=== PATIENT | male | born 1940 | race Caucasian/White ===

== ENCOUNTER 2017-02-05 15:46 | Observation (INO) ==
[2017-02-05] MEDS ORDERED: *HR* Metoprolol 5 MG/5 ML VIAL IVP ONE (15:59)
--- NOTE | 2017-02-05 16:11 | Emergency Department Note ---
Disposition Clinical Impression: Atrial flutter Qualifiers: Atrial flutter type: atypical Qualified Code(s): I48.4 - Atypical atrial flutter Disposition: Admitted As Inpatient Condition: Good Arrhythmia/Palpitations HPI - General Chief Complaint: ED Arrhythmia/Palpitations Stated Complaint: A flutter Time Seen by Provider: 02/05/17 15:51 Source: patient Mode of arrival: wheelchair Limitations: no limitations Nursing Notes Reviewed: Yes Vital Signs Reviewed: Yes - History of Present Illness HPI Narrative: 76-year-old male history of coronary artery disease, status post CABG roughly 5 years ago, hypertension, hyperlipidemia who presents to the ER due to atrial flutter. Patient states he was seen by his store hand this morning and found to be in a flutter. He states this is a new diagnosis for him. He does report that he has felt more short of breath lately. No chest pain at home. No recent changes in his medications. Denies a history of DVT or PE. No other complaints. Pt Subjective Complaint: palpitations Onset (ago): unknown Duration: intermittent Severity: moderate Context: occurred during rest Associated symptoms: Reports: shortness of breath. Denies: chest pain, syncope , nausea, vomiting - Related Data Allergies Allergy/AdvReac Type Severity Reaction Status Date / Time No Known Allergies Allergy Verified 12/21/15 09:43 All systems ED: reviewed and negative except as stated. Constitutional: Denies: fever Cardiovascular: Reports: palpitations. Denies: chest pain Respiratory: Reports: dyspnea. Denies: wheezes Gastrointestinal: Denies: abdominal pain, nausea, vomiting Past Medical History - Past Medical History Attestation: Yes The following information was validated with the patient. Source: patient Medical history: Reports: coronary artery disease, GERD, hyperlipidemia, hypertension Surgical history: Reports: coronary bypass (CABG) Psychiatric history: Reports: no psych history - Social History Smoking Status: Current every day smoker Smokeless Tobacco Status: No Alcohol use: Reports: none Drug use: Reports: none Physical Exam - General Limitations: no limitations General appearance: alert, in no apparent distress - Head Head exam: atraumatic, normocephalic, normal inspection - Eye Eye exam: Present: normal appearance, EOMI - ENT ENT exam: normal exam - Neck Neck exam: Present: normal inspection, full ROM - Chest Chest inspection: Present: normal inspection, symmetric chest wall rise - Respiratory Respiratory exam: Present: normal lung sounds bilaterally - Cardiovascular Cardiovascular exam: Present: tachycardia, irregular rhythm, normal heart sounds - Abdominal Exam Abdominal exam: Present: soft, Non-Tender. Absent: tenderness, distention, rigidity - Extremities Exam Extremities exam: Present: normal inspection, full ROM - Expanded Upper Extremity Exam Shoulder exam: Present: normal inspection, full ROM Arm exam: Present: normal inspection, full ROM Elbow exam: Present: normal inspection, full ROM Forearm/Wrist exam: Present: normal inspection, full ROM Hand exam: Present: normal inspection, full ROM Vascular exam: Normal: radial pulse - Expanded Lower Extremity Exam Hip/Pelvis exam: Present: normal inspection, full ROM Upper leg exam: Present: normal inspection, full ROM Knee exam: Present: normal inspection, full ROM Lower leg exam: Present: normal inspection, full ROM Ankle exam: Present: normal inspection, full ROM Foot/toe exam: Present: normal inspection, full ROM Neurovascular/Tendon exam: Absent: motor deficit, sensory deficit - Neurological Exam Neurological exam: Present: alert, other (GCS 15. Nonfocal neurologic exam. Moves all extremities equally.) - Psychiatric Psychiatric exam: Present: normal affect, normal mood - Skin Skin exam: Present: warm, dry, intact, normal color Course Course Narrative: Patient seen and examined. His heart rate is currently in the 110s. Blood pressure is stable. We will obtain a repeat EKG as well as chest x-ray and labs including troponin and TSH. Patient takes metoprolol at homes we will try a dose of IV metoprolol here prior to initiating boluses or drips. - Reevaluation(s) Reevaluation #1: Patient's heart rate is in the 70s after 5 mg of Lopressor. Discussed admission to the hospital and the patient is in agreement. Vital Signs Temperature 98.6 F 02/05/17 15:49 Pulse Rate 105 02/05/17 15:49 Respiratory Rate 18 02/05/17 15:49 Blood Pressure 142/91 02/05/17 15:49 O2 Sat by Pulse Oximetry 97 02/05/17 15:49 Temperature 97.6 F 02/05/17 20:14 Pulse Rate 86 02/05/17 20:14 Respiratory Rate 18 02/05/17 20:14 Blood Pressure 150/88 02/05/17 20:14 O2 Sat by Pulse Oximetry 95 02/05/17 20:14 Oxygen Delivery Oxygen Delivery Room Air Arrhythmia/Palpitations - MDM Narrative Medical decision making narrative: 76-year-old male presents to the ER due to palpitations and shortness of breath from his cardiology office found to be in new onset A. fib flutter with RVR. EKG demonstrates a flutter with 2:1, 3:1 and 4:1 conduction. Chest x-ray is unremarkable. Troponin and TSH within normal limits. Patient given 5 mg of Lopressor with rate control at this time. Accepted by the hospitalist service. - Lab Data Lab results reviewed: Yes I reviewed the patient's lab results. Result diagrams: 02/05/17 16:12 02/05/17 16:12 Lab Results 02/05/17 02/05/17 02/05/17 Range/Units 16:12 16:12 16:12 WBC 6.3 (4.3-11.1) K/mcL RBC 5.51 H (4.19-5.50) M/mcL Hgb 16.0 (12.9-16.9) g/dL Hct 49.9 (37.5-50.1) % MCV 90.6 (83.0-100.0) fL MCH 29.0 (28.0-33.3) pg MCHC 32.1 (31.6-35.5) g/dL RDW 14.0 (11.5-14.5) % Plt Count 162 (140-400) K/mcL MPV 10.3 (9.4-12.4) fL Immature Gran % 0.2 (0-4) % Seg Neutrophils % 63.5 % Lymphocytes % 25.0 % Monocytes % 9.2 % Eosinophils % 1.6 % Basophils % 0.5 % Neutrophils # 4.0 (1.6-8.9) K/mcL Lymphocytes # 1.6 (0.6-4.6) K/mcL Monocytes # 0.6 (0.0-1.3) K/mcL Eosinophils # 0.1 (0.0-0.6) K/mcL Basophils # 0.0 (0.0-0.2) K/mcL PT 10.9 (9.4-12.1) Seconds INR 1.0 APTT 29.1 (26.0-36.0) Seconds Sodium 139 (136-145) mEq/L Potassium 3.8 (3.5-4.5) mEq/L Chloride 103 (98-109) mEq/L Carbon Dioxide 30 H (19-29) mEq/L BUN 13 (8-26) mg/dL Creatinine 0.95 (0.72-1.25) mg/dL Est GFR ( Amer) > 60 (> 60) Est GFR (Non-Af Amer) > 60 (> 60) BUN/Creatinine Ratio 14 (6-26) Glucose 85 (70-99) mg/dL Calculated Osmolality 287 (280-300) Calcium 9.2 (8.6-10.8) mg/dL Troponin I (0-0.03) ng/mL TSH 0.782 (0.350-4.840) mcIU/mL 02/05/17 Range/Units 16:12 WBC (4.3-11.1) K/mcL RBC (4.19-5.50) M/mcL Hgb (12.9-16.9) g/dL Hct (37.5-50.1) % MCV (83.0-100.0) fL MCH (28.0-33.3) pg MCHC (31.6-35.5) g/dL RDW (11.5-14.5) % Plt Count (140-400) K/mcL MPV (9.4-12.4) fL Immature Gran % (0-4) % Seg Neutrophils % % Lymphocytes % % Monocytes % % Eosinophils % % Basophils % % Neutrophils # (1.6-8.9) K/mcL Lymphocytes # (0.6-4.6) K/mcL Monocytes # (0.0-1.3) K/mcL Eosinophils # (0.0-0.6) K/mcL Basophils # (0.0-0.2) K/mcL PT (9.4-12.1) Seconds INR APTT (26.0-36.0) Seconds Sodium (136-145) mEq/L Potassium (3.5-4.5) mEq/L Chloride (98-109) mEq/L Carbon Dioxide (19-29) mEq/L BUN (8-26) mg/dL Creatinine (0.72-1.25) mg/dL Est GFR ( Amer) (> 60) Est GFR (Non-Af Amer) (> 60) BUN/Creatinine Ratio (6-26) Glucose (70-99) mg/dL Calculated Osmolality (280-300) Calcium (8.6-10.8) mg/dL Troponin I 0.01 (0-0.03) ng/mL TSH (0.350-4.840) mcIU/mL - Radiology Data Radiology results reviewed: Yes I reviewed the patient's radiology results. Chest X-Ray 02/05/17 15:59 IMPRESSION: No acute cardiopulmonary disease. D/ / Dallin Diego MD / Dallin Diego MD Interpreting Provider: Dallin Diego MD - EKG Data EKG attestation: Yes I reviewed and interpreted this EKG. EKG results narrative: EKG demonstrates atrial flutter with rapid ventricular response with a rate of 110. Patient appears to be going in and out of 2-123-124-1 conduction. Normal axis. Normal intervals. T-wave inversions in the inferior leads. No ST elevations or depressions. Changes from previous EKG included atrial flutter. S.B.A.Anant - Neeraj.B.AYanci Situation: Demographics, MOA Background: Presenting Complaint, Relevant PMH, Meds, & Allergies Assessment: Vital Signs, Course and respsone to treatment, Exam Concerns, Patient/Family Expectation, Pertinant Lab Results, Outstanding Labs Recommendation: Barrier(s) to disposition, Recommendation based on pending studies, treatments, or consults S.B.A.RCan Report Given to: Radha Castorena [facility] Time: 18:50 Attestation Statement - Attestation Attestation: I examined this patient and my medical decision-making was reviewed with the Resident Physician, Dr. Salas. I agree with the documented findings, disposition and treatment plan as described except to the extent set forth below. Patient is a 68-year-old white male with a history of coronary artery disease hypertension hyperlipidemia status post remote CABG who presents to the emergency department sent by his store hand from their office this morning with new onset atrial flutter. Patient states he has noticed some occasional intermittent episodes of shortness of breath associated with some palpitations but they have been intermittent and he has noticed over the past 6 weeks. Patient had a routine follow-up today with his store hand and on evaluation noticed he was in a rapid irregular heart rate and sent him here for further evaluation. Patient sees Dr. Alan. Patient has no complaints of chest pain pressure or heaviness, no lightheadedness or syncope, no abdominal pain or back pain and currently at rest he is not feeling any shortness of breath. Agree patient's physical exam findings as documented. EKG shows atrial flutter with rapid ventricular response with no acute ST or T- wave changes. Patient had lab evaluation was continued on a cardiac cath lab radiology technologist pulse ox IV saline well was established and patient's blood pressure has remained stable throughout. Patient received a dose of IV Lopressor here which controlled his rate remains in A. fib/atrial flutter. Labs including troponin were unremarkable and chest x-ray is normal. Patient will be admitted for further evaluation of this new onset atrial flutter. Case was discussed with hospitalist who accepted patient for admission.
[2017-02-05 16:20] LABS: Basophils % 0.5 %; Eosinophils # 0.1 K/mcL (0.0-0.6); Eosinophils % 1.6 %; Hematocrit 49.9 % (37.5-50.1); Immature Granulocytes % 0.2 % (0-4); Lymphocytes # 1.6 K/mcL (0.6-4.6); Mean Corpuscular HGB Conc 32.1 g/dL (31.6-35.5); Mean Corpuscular Volume 90.6 fL (83.0-100.0); Mean Platelet Volume 10.3 fL (9.4-12.4); Monocytes # 0.6 K/mcL (0.0-1.3); Monocytes % 9.2 %; Platelet Count 162 K/mcL (140-400); Red Blood Count 5.51 M/mcL (4.19-5.50); Segmented Neutrophils % 63.5 %
[2017-02-05 16:27] LABS: Prothrombin Time 10.9 Seconds (9.4-12.1)
[2017-02-05 16:30] LABS: Activated Partial Thrombo Time 29.1 Seconds (26.0-36.0)
[2017-02-05 16:32] LABS: BUN/Creatinine Ratio 14 (6-26); Blood Urea Nitrogen 13 mg/dL (8-26); Calcium 9.2 mg/dL (8.6-10.8); Carbon Dioxide 30 mEq/L (19-29); Chloride 103 mEq/L (98-109); Glucose 85 mg/dL (70-99); Osmolality,Calculated 287 (280-300); Potassium 3.8 mEq/L (3.5-4.5); Sodium 139 mEq/L (136-145); eGFR For African Americans > 60 (> 60); eGFR For Non-African Americans > 60 (> 60)
[2017-02-05 16:58] LABS: Thyroid Stimulating Hormone 0.782 mcIU/mL (0.350-4.840)
[2017-02-05] MEDS ORDERED: Naloxone 0.4 MG/ML INJ IVP PRN (20:21)
[2017-02-05] MEDS ORDERED: Ondansetron 4 MG/2 ML VIAL IVP PRN (20:21)
[2017-02-05] MEDS ORDERED: Acetaminophen 325 MG TABLET PO PRN (20:21)
[2017-02-05] MEDS ORDERED: *HR* Morphine 2 MG/ML SYRINGE IVP PRN (20:21)
[2017-02-05] MEDS: Ranolazine 500 MG TAB.ER.12H PO SCH (21:13)
[2017-02-05] MEDS: Aspirin Enteric Coated 81 MG Tablet PO SCH (21:13)
--- NOTE | 2017-02-05 21:56 | Internal Med History&Physical ---
Date of Encounter: 02/05/17 Time of Encounter: 21:30 Assessment and Plan (1) Atrial flutter Current visit: Yes Status: Acute Atrial flutter with RVR - now rate controlled, likely paroxysmal One dose IV Lopressor 5 mg given in ED Continue PO Lopressor, Aspirin EKG - atrial flutter Echocardiogram - LVEF 55%, mild diastolic dysfunction Troponin - negative, cycle troponin BN peptide - 148 Cardiology consult Cardiac telemetry, continue to monitor closely Qualifiers: Atrial flutter type: unspecified Qualified Code(s): I48.92 - Unspecified atrial flutter (2) CAD (coronary artery disease) Current visit: Yes Status: Chronic Coronary artery disease status post CABG - stable Continue aspirin, Crestor, Lopressor, Ranexa Troponin - negative Qualifiers: Coronary Disease-Associated Artery/Lesion type: [place] artery [place] vs. transplanted heart: [place] heart Associated angina: without angina Qualified Code(s): I25.10 - Atherosclerotic heart disease of [place] coronary artery without angina pectoris (3) Hypertension Current visit: Yes Status: Chronic Essential hypertension, controlled, monitor Continue home dose of losartan, Imdur, Lopressor Qualifiers: Hypertension type: essential hypertension Qualified Code(s): I10 - Essential (primary) hypertension (4) Hyperlipidemia Current visit: Yes Status: Chronic Continue Crestor Qualifiers: Hyperlipidemia type: unspecified Qualified Code(s): E78.5 - Hyperlipidemia , unspecified (5) DVT prophylaxis Current visit: Yes Status: Acute Continue heparin subcutaneous Internal Medicine - H&P: HPI Chief complaint: Atrial flutter Admitted From: Emergency Dept History of present illness: Mr. Olivarez is a 76 year old male with past medical history of GERD, coronary artery disease status post CABG, hyperlipidemia and hypertension. Patient presents to the ED from his physician's office for atrial flutter. Examined in the room. Patient is awake and alert. Not in any distress. Able to provide all history. No family members at bedside. Patient states he went to his physician's office today for routine checkup. He was found to have atrial flutter with rapid ventricular response. He was then sent to the ED. This is apparently a new diagnosis for him. Patient denies chest pain, denies shortness of breath, denies palpitations. He states he has no symptoms. Patient states he wants to be discharged as soon as possible. Patient has no other acute complaints at this time. Initial workup in the ED revealed atrial flutter with RVR. Chest x-ray is negative. Troponin is negative. 5 mg IV Lopressor was given in the ED. Heart rate is now controlled. No other significant findings. Vision had a recent echocardiogram which shows LVEF 55% with normal LV size and systolic function mild diastolic dysfunction. Patient is being admitted for atrial flutter. CODE STATUS full code. Past Med Surg Social Fam HX - Past Medical History Medical history: coronary artery disease, GERD, hyperlipidemia, hypertension Psychiatric history: no psych history - Past Surgical History Surgical History: coronary bypass (CABG) - Social History Smoking Status: Current every day smoker Packs per day: <1 Smokeless Tobacco Status: No Alcohol use: none Drug use: none - Family History Mother History Unknown: Yes Internal Medicine - H&P: Meds Aspirin Enteric Coated [Aspirin EC] 81 mg PO DAILY 02/05/17 [History] Cholecalciferol (D-3) [Vitamin D] 2,000 unit PO DAILY 02/05/17 [History] Clopidogrel [Plavix] 75 mg PO DAILY 02/05/17 [History] Isosorbide MONOnitrate (24 HR) [Imdur] 60 mg PO DAILY 02/05/17 [History] Losartan [Cozaar] 25 mg PO DAILY 02/05/17 [History] Magnesium Oxide [Mag-Ox] 400 mg PO DAILY 02/05/17 [History] Metoprolol [Lopressor] 25 mg PO BID 02/05/17 [History] Omeprazole [PriLOSEC] 40 mg PO DAILY 02/05/17 [History] Ranitidine HCl [Zantac] 150 mg PO BID 02/05/17 [History] Ranolazine [Ranexa] 500 mg PO BID 02/05/17 [History] Rosuvastatin [Crestor] 40 mg PO HS 02/05/17 [History] 3 Allergy/AdvReac Type Severity Reaction Status Date / Time No Known Allergies Allergy Verified 12/21/15 09:43 All Systems PM: A 10-system review of systems was performed and is negative for pertinent findings except as documented above in the HPI. - Constitutional Constitutional: no fatigue, no fever(s), no weakness - EENT Eyes: no blurry vision - Cardiovascular Cardiovascular ROS IM: no chest pain, no diaphoresis, no dyspnea, no dyspnea on exertion, no edema, no lightheadedness, no orthopnea, no syncope - Respiratory Respiratory: no cough, no dyspnea, no hemoptysis, no dyspnea on exertion, no wheezing - Gastrointestinal Gastrointestinal: no abdominal pain, no belching, no bloating, no cramping, no diarrhea, no hematemesis, no hematochezia, no nausea, no vomiting - Genitourinary Genitourinary ROS male: no dysuria - Neurological Neurological ROS: no abnormal gait, no confusion, no dizziness, no loss of vision, no numbness, no tingling - Constitutional Vitals: Temp Pulse Resp BP Pulse Ox 97.6 F 86 18 150/88 95 02/05/17 20:14 02/05/17 20:14 02/05/17 20:14 02/05/17 20:14 02/05/17 20:14 General appearance: Present: A&O X 3, pleasant, no acute distress, answers questions appropriately - Head Head exam: Present: atraumatic - Eye Eye exam: Present: EOMI - ENT ENT exam: Present: mucous membranes moist - Respiratory Respiratory exam: Present: CTAB. Absent: rales, rhonchi, wheezes, tachypnea - Cardiovascular Cardiovascular exam: Present: RRR, +S1, +S2 - GI/Abdominal GI/Abdominal exam: Present: soft. Absent: distended, firm, guarding, tenderness - Extremities Exam Extremities exam: Present: radial pulses palpable and symmetrical. Absent: calf tenderness, cyanotic, pedal edema - Neurological Exam Neurological exam: Present: alert, oriented X3, no focal deficits. Absent: facial droop, speech deficit Internal Med - H&P Results - Labs CBC & Chem 7: 02/05/17 16:12 02/05/17 16:12 Labs: Cardiac Enzymes 02/05/17 Range/Units 20:44 Troponin I 0.01 (0-0.03) ng/mL
[2017-02-05] MEDS: *HR* Heparin 5,000 UNIT/ML VIAL SQ SCH (23:25)
[2017-02-05 23:47] LABS: Bilirubin,Urine Negative (Negative); Blood,Urine Negative (Negative); Clarity,Urine Clear (Clear); Color,Urine Yellow (Yellow); Glucose,Urine (UA) Normal (Normal); Ketones,Urine Negative (Negative); Leukocyte Esterase,Urine Negative (Negative); Nitrite,Urine Negative (Negative); Protein,Urine Negative (Neg-Trace); Specific Gravity,Urine 1.019 (1.010-1.025); Urobilinogen,Urine Normal (Normal)
[2017-02-06 04:24] LABS: BUN/Creatinine Ratio 18 (6-26); Blood Urea Nitrogen 15 mg/dL (8-26); Carbon Dioxide 26 mEq/L (19-29); Chloride 106 mEq/L (98-109); Chol/HDL Ratio 3.8 (0-4.9); Cholesterol 134 mg/dL (< 200); Glucose 103 mg/dL (70-99); HDL Cholesterol 35 mg/dL (40-59); LDL Cholesterol,Calculated 51 mg/dL (0-99); Magnesium 1.9 mg/dL (1.6-2.6); Osmolality,Calculated 289 (280-300); Potassium 4.2 mEq/L (3.5-4.5); Sodium 139 mEq/L (136-145); Triglycerides 240 mg/dL (< 150); eGFR For African Americans > 60 (> 60); eGFR For Non-African Americans > 60 (> 60)
[2017-02-06] MEDS ORDERED: Famotidine 20 MG/2 ML VIAL IVP SCH (06:00)
[2017-02-06] MEDS: Ipratropium/Albuterol Neb 3 ML IH SCH ×6 (07:37→23:18)
--- NOTE | 2017-02-06 08:20 | Internal Med Progress Note ---
<Shyanne Guerrero - Last Filed: 02/06/17 16:02> Date of Encounter: 02/06/17 Time of Encounter: 08:20 - Assessment and plan (1) Atrial flutter Current Visit: Yes Status: Acute Assessment and plan: Atrial flutter with RVR x 1 mo, Hx of CAD w/ Last PCI 2014, PTCA prox-mid RCA) Cardio on consult, appreciate res Lopressor 50 mg BID Xarelto 20 mg PO daily Qualifiers: Atrial flutter type: typical Qualified Code(s): I48.3 - Typical atrial flutter (2) CAD (coronary artery disease) Current Visit: Yes Status: Chronic Assessment and plan: ECG w/o ischemic changes. Troponin negative x3 Continue meds -- ASA, nitrates, ranolazine, statin, B-carlos Qualifiers: Coronary Disease-Associated Artery/Lesion type: [place] artery [place] vs. transplanted heart: [place] heart Associated angina: without angina Qualified Code(s): I25.10 - Atherosclerotic heart disease of [place] coronary artery without angina pectoris (3) DVT prophylaxis Current Visit: Yes Status: Acute Assessment and plan: Covered w/ Xarelto (4) Hypertension Current Visit: Yes Status: Chronic Assessment and plan: BP within goal, 101/64 Continue medical management Qualifiers: Hypertension type: essential hypertension Qualified Code(s): I10 - Essential (primary) hypertension (5) Hyperlipidemia Current Visit: Yes Status: Chronic Assessment and plan: Per cardiology, recommend statin Qualifiers: Hyperlipidemia type: unspecified Qualified Code(s): E78.5 - Hyperlipidemia , unspecified - Subjective Interval history: Pt lying comfortably. States he is an active smoker. Denies chest pain, SOB, abdominal currently. - Constitutional Vitals: Temp Pulse Resp BP Pulse Ox 97.6 F 84 15 107/72 97 02/06/17 07:52 02/06/17 07:52 02/06/17 07:52 02/06/17 07:52 02/06/17 07:52 General appearance: Present: cooperative, A&O X 3, no acute distress, answers questions appropriately - Head Head exam: Present: atraumatic, normocephalic - Respiratory Respiratory exam: Present: CTAB. Absent: accessory muscle use, rales, rhonchi, wheezes - Cardiovascular Cardiovascular exam: Present: irregular rhythm, +S1, +S2. Absent: tachycardia - GI/Abdominal GI/Abdominal exam: Present: normal bowel sounds, soft, no peritoneal signs. Absent: distended, tenderness - Extremities Exam Extremities exam: Present: warm. Absent: calf tenderness, cyanotic, pedal edema Internal Medicine: Result - Labs CBC & Chem 7: 02/06/17 08:43 02/06/17 02:50 Labs: BMP 02/06/17 02:50 Sodium 139 Potassium 4.2 Chloride 106 Carbon Dioxide 26 BUN 15 Creatinine 0.85 Glucose 103 H Calcium 9.0 Cardiac Enzymes 02/05/17 02/06/17 Range/Units 20:44 02:50 Troponin I 0.01 0.02 (0-0.03) ng/mL Urine 02/05/17 Range/Units 23:30 Urine Color Yellow (Yellow) Urine Clarity Clear (Clear) Urine pH 6.0 (5.0-8.0) pH Units Ur Specific [place] 1.019 (1.010-1.025) Urine Protein Negative (Neg-Trace) mg/dL Urine Glucose (UA) Normal (Normal) mg/dL - ABG Interpretation ABG results: PT/INR, D-dimer PT 10.9 Seconds (9.4-12.1) 02/05/17 16:12 - Impressions Chest X-Ray 02/05/17 15:59 IMPRESSION: No acute cardiopulmonary disease. D/ / Dallin Diego MD / Dallin Diego MD Interpreting Provider: Dallin Diego MD Consult Discharge Plan - Plan Referrals: Eleni Pope MD [Primary Care Provider] - 02/17/17 1:45 pm <Colton Morrison P - Last Filed: 02/06/17 17:47> Date of Encounter: 02/06/17 - Constitutional Vitals: Temp Pulse Resp BP Pulse Ox 97.6 F 99 16 90/47 93 02/06/17 16:58 02/06/17 16:58 02/06/17 16:58 02/06/17 16:58 02/06/17 16:58 Internal Medicine: Result - Labs CBC & Chem 7: 02/06/17 08:43 02/06/17 02:50 Labs: Short CBC 02/06/17 Range/Units 08:43 WBC 4.9 (4.3-11.1) K/mcL Hgb 15.2 (12.9-16.9) g/dL Hct 48.9 (37.5-50.1) % Plt Count 150 (140-400) K/mcL Neutrophils # 2.8 (1.6-8.9) K/mcL BMP 02/06/17 02:50 Sodium 139 Potassium 4.2 Chloride 106 Carbon Dioxide 26 BUN 15 Creatinine 0.85 Glucose 103 H Calcium 9.0 Cardiac Enzymes 02/05/17 02/06/17 02/06/17 Range/Units 20:44 02:50 08:43 Troponin I 0.01 0.02 0.01 (0-0.03) ng/mL Urine 02/05/17 Range/Units 23:30 Urine Color Yellow (Yellow) Urine Clarity Clear (Clear) Urine pH 6.0 (5.0-8.0) pH Units Ur Specific [place] 1.019 (1.010-1.025) Urine Protein Negative (Neg-Trace) mg/dL Urine Glucose (UA) Normal (Normal) mg/dL - ABG Interpretation ABG results: PT/INR, D-dimer PT 10.9 Seconds (9.4-12.1) 02/05/17 16:12 - Attending Attestation I examined this patient and my medical decision-making was reviewed with the Resident Physician. I agree with the documented findings, disposition and treatment plan as described except to the extent set forth below.
[2017-02-06] MEDS: Isosorbide MONOnitrate (24 HR) 60 MG TAB.ER.24H PO SCH (08:55)
[2017-02-06] MEDS: Ranolazine 500 MG TAB.ER.12H PO SCH ×2 (08:55→21:45)
[2017-02-06] MEDS: Magnesium Oxide 400 MG TABLET PO SCH (08:56)
[2017-02-06] MEDS: Aspirin Enteric Coated 81 MG Tablet PO SCH (08:56)
[2017-02-06] MEDS: Cholecalciferol (D-3) 1,000 UNIT TABLET PO SCH (08:56)
[2017-02-06] MEDS: *HR* Heparin 5,000 UNIT/ML VIAL SQ SCH (08:57)
[2017-02-06 09:34] LABS: Basophils % 0.6 %; Eosinophils # 0.2 K/mcL (0.0-0.6); Hematocrit 48.9 % (37.5-50.1); Hemoglobin 15.2 g/dL (12.9-16.9); Immature Granulocytes % 0.2 % (0-4); Lymphocytes # 1.5 K/mcL (0.6-4.6); Lymphocytes % 30.5 %; Mean Corpuscular HGB Conc 31.1 g/dL (31.6-35.5); Mean Corpuscular Volume 93.1 fL (83.0-100.0); Mean Platelet Volume 10.9 fL (9.4-12.4); Monocytes # 0.5 K/mcL (0.0-1.3); Monocytes % 9.8 %; Neutrophils # 2.8 K/mcL (1.6-8.9); Platelet Count 150 K/mcL (140-400); Red Blood Count 5.25 M/mcL (4.19-5.50); Red Cell Distribution Width 14.3 % (11.5-14.5); Segmented Neutrophils % 55.9 %
--- NOTE | 2017-02-06 09:52 | Cardiology Consult Note ---
Date of Encounter: 02/06/17 Time of Encounter: 08:45 Assessment and Plan (1) Atrial flutter Current Visit: Yes Status: Acute Newly diagnosed atrial flutter with RVR; reports symptoms for 1 month. Will increase lopressor to 50 mg BID to improve rate control. ARB stopped to prevent hypotension. 12 hour tele: avg HR=90 aflutter. TSH normal, no significant electrolyte abnormality. Recent TTE 08/2016: EF 55%, mild MR CHA2Ds Vasc=4 (age, CAD, HTN). Recommend full AC, discussed coumadin vs. NOAC; if affordable, he prefers NOAC. Discussed with Dr. Hiram Rodriguez, will willis check Xarelto 20 mg daily. Anticipate will stop plavix to avoid triple therapy ( last PCI 2014, PTCA prox-mid RCA). Recommend rate control strategy and full AC for 1 month, follow-up with Dr. Hiram Rodriguez in the outpatient setting for evaluation for possible ablation. Qualifiers: Atrial flutter type: typical Qualified Code(s): I48.3 - Typical atrial flutter (2) CAD (coronary artery disease) Current Visit: Yes Status: Chronic Hx of CAD s/p CABG; most recent [facility] 2014 s/p PTCA of proximal and mid RCA. Denies subsequent PCI at outside hospital. Stable symptoms, denies chest pain or discomfort. No ischemic ECG changes noted. Troponin negative x3. Continue asa, nitrates, ranexa, betablocker, and statin. Anticipate discontinuation of plavix if start full AC to prevent triple therapy. Qualifiers: Coronary Disease-Associated Artery/Lesion type: [place] artery [place] vs. transplanted heart: [place] heart Associated angina: without angina Qualified Code(s): I25.10 - Atherosclerotic heart disease of [place] coronary artery without angina pectoris Discussion w patient/family: The assessment and plan as outlined above was discussed with the patient and/or family members who expressed understanding and agreement. All questions were answered. Thank you for involving us in the care of your patient. Please call with any questions. The patient will be discussed and reviewed with Dr. Hiram Rodriguez; changes to be made accordingly. History of Present Illness Consult date: 02/06/17 Requesting physician: Tank Todd Consult reason: atrial flutter Chief complaint: Palpitations, fatigue History of present illness: Mr. Minor is a 76 year old male with PMHx significant for CAD s/p CABG, GERD, HLD, HTN, and severe COPD who presented to the ED after being sent by Cardiology office for new onset atrial flutter with RVR, HR 137 bpm. Patient reports fatigue, palpitations, and shortness of breath for the past month. Palpitations worsen with exertion/stress and improve with rest, he notes palpitations also frequently occur at rest. Upon arrival to ED, HR was improved in the low 100s, he was given IV lopressor which improved rate and was then admitted for observation. Prior CV testing: TTE 08/2016: EF 55%, mild LVDD, mild MR LHC 10/26/14: severe 3v CAD, successful PTCA or proximal and mid RCA; s/p 1 of 3 patent bypass grafts--GONGORA to mLAD occluded, SVG to RCA is occluded, SVG to OM2 patent. Past Med Surg Social Fam HX - Past Medical History Attestation: Yes The following information was validated with the patient. Source: patient, old records reviewed Medical history: COPD, coronary artery disease, GERD, hyperlipidemia, hypertension Psychiatric history: no psych history - Past Surgical History Surgical History: coronary bypass (CABG) - Social History Smoking Status: Current every day smoker Packs per day: <1 Smokeless Tobacco Status: No Alcohol use: none Drug use: none - Family History Mother History Unknown: Yes Medications and Allergies Aspirin Enteric Coated [Aspirin EC] 81 mg PO DAILY 02/05/17 [History] Cholecalciferol (D-3) [Vitamin D] 2,000 unit PO DAILY 02/05/17 [History] Clopidogrel [Plavix] 75 mg PO DAILY 02/05/17 [History] Isosorbide MONOnitrate (24 HR) [Imdur] 60 mg PO DAILY 02/05/17 [History] Losartan [Cozaar] 25 mg PO DAILY 02/05/17 [History] Magnesium Oxide [Mag-Ox] 400 mg PO DAILY 02/05/17 [History] Metoprolol [Lopressor] 25 mg PO BID 02/05/17 [History] Omeprazole [PriLOSEC] 40 mg PO DAILY 02/05/17 [History] Ranitidine HCl [Zantac] 150 mg PO BID 02/05/17 [History] Ranolazine [Ranexa] 500 mg PO BID 02/05/17 [History] Rosuvastatin [Crestor] 40 mg PO HS 02/05/17 [History] 3 Allergy/AdvReac Type Severity Reaction Status Date / Time No Known Allergies Allergy Verified 12/21/15 09:43 All Systems Review: A 10-system review of systems was performed and is negative for pertinent findings except as documented above in the HPI. - Cardiovascular Cardiovascular: as per HPI Physical Examination Vital Signs, Last 4 Hours Temp Pulse Resp BP Pulse Ox 02/06/17 07:52 97.6 F 84 15 107/72 97 General: Conversant, No Apparent Distress HEENT: Atraumatic, Normocephaly, Mucus Membranes Moist Cardiac: Other (irregularity irregular) Lungs: Normal Breath Sounds Neuro: Alert and responsive Abdomen: Soft Skin: No rashes noted on visualized skin Musculoskeletal: No Chest Wall Tenderness Extremities: No Edema, Normal Pulses Results 02/06/17 08:43 02/06/17 02:50 Lab Results 02/05/17 02/05/17 02/06/17 20:44 20:44 02:50 WBC Hgb Hct Plt Count Sodium Potassium Chloride Carbon Dioxide BUN Creatinine Glucose Calcium Magnesium Troponin I 0.01 0.02 B-Natriuretic Peptide 148 H 02/06/17 02/06/17 02/06/17 02:50 08:43 08:43 WBC 4.9 Hgb 15.2 Hct 48.9 Plt Count 150 Sodium 139 Potassium 4.2 Chloride 106 Carbon Dioxide 26 BUN 15 Creatinine 0.85 Glucose 103 H Calcium 9.0 Magnesium 1.9 Troponin I 0.01 B-Natriuretic Peptide Active Medications Acetaminophen (Tylenol) 650 mg PO Q6HR PRN PRN Reason: Mild Pain (1-3) Stop: 08/07/17 20:22 Albuterol/Ipratropium (Duoneb) 3 ml IH [id number] [facility] Stop: 08/08/17 06:01 Last Admin: 02/06/17 07:44 Dose: 3 ml Aspirin (Aspirin Ec) 81 mg PO DAILY [facility] Stop: 08/07/17 20:31 Last Admin: 02/06/17 08:56 Dose: 81 mg Clopidogrel Bisulfate (Plavix) 75 mg PO HS [facility] Stop: 08/07/17 21:01 Last Admin: 02/05/17 21:13 Dose: 75 mg Famotidine (Pepcid) 20 mg PO 0730,1630 [facility] PRN Reason: Protocol Stop: 08/08/17 16:31 Heparin Sodium (Porcine) (Heparin) 5,000 unit SQ Q8HR [facility] Stop: 08/08/17 00:01 Last Admin: 02/06/17 08:57 Dose: 5,000 unit Isosorbide Mononitrate (Imdur) 60 mg PO DAILY [facility] Stop: 08/08/17 09:01 Last Admin: 02/06/17 08:55 Dose: 60 mg Magnesium Oxide (Mag-Ox) 400 mg PO DAILY [facility] PRN Reason: Protocol Stop: 08/08/17 09:01 Last Admin: 02/06/17 08:56 Dose: 400 mg Metoprolol Tartrate (Lopressor) 50 mg PO BID [facility] Stop: 08/08/17 09:01 Last Admin: 02/06/17 08:56 Dose: 50 mg Morphine Sulfate (Morphine Sulfate) 2 mg IVP Q4HR PRN PRN Reason: Severe Pain (7-10) Stop: 08/07/17 20:22 Naloxone HCl (Narcan) 0.4 mg IVP Q2MIN PRN PRN Reason: Opioid Reversal Stop: 08/07/17 20:22 Omeprazole (Prilosec) 40 mg PO DAILY@0730 [facility] Stop: 08/08/17 07:31 Last Admin: 02/06/17 08:56 Dose: 40 mg Ondansetron HCl (Zofran) 4 mg IVP Q8HR PRN PRN Reason: Nausea And Vomiting Stop: 08/07/17 20:22 Ranolazine (Ranexa) 500 mg PO BID [facility] Stop: 08/07/17 21:01 Last Admin: 02/06/17 08:55 Dose: 500 mg Rosuvastatin Calcium (Crestor) 40 mg PO HS [facility] Stop: 08/07/17 21:01 Last Admin: 02/05/17 21:13 Dose: 40 mg Vitamin D (Vitamin D) 1,000 unit PO DAILY [facility] Stop: 08/08/17 09:01 Last Admin: 02/06/17 08:56 Dose: 1,000 unit - Imaging and Cardiology Echo: report reviewed Cardiac cath: report reviewed Other Results: 12 hour tele: avg HR=90 afib/flutter - EKG Interpretation EKG results cardiology: personally reviewed Consult Discharge Plan - Plan Referrals: Eleni Pope MD [Primary Care Provider] - 02/17/17 1:45 pm
--- NOTE | 2017-02-06 11:24 | Event Note ---
Date of Encounter: 02/06/17 Time of Encounter: 11:15 - Cardiology Event Note Joshua check: Xarelto 20 mg daily $45/month. Discussed with patient, he is agreeable to cost. Additionally, will determine if patient is eligible for cost assistance program in the outpatient setting. Rx sent to [facility] and will be ready today for pick-up. Will stop SQ heparin and plavix 75 mg daily[address]iscuss[address] with Dr. Hiram Rodriguez, will start Xarelto 20 mg daily. Follow-up with Dr. Hiram Rodriguez in 4-6 weeks. Will coordinate appt. Cardiology will sign-off, please call with questions.
[2017-02-06] MEDS: Famotidine 20 MG TABLET PO SCH (16:23)
[2017-02-06] MEDS ORDERED: *HR* Rivaroxaban 10 MG TABLET PO SCH (17:00)
[2017-02-07 04:14] LABS: Basophils % 0.5 %; Eosinophils # 0.2 K/mcL (0.0-0.6); Eosinophils % 3.1 %; Hematocrit 44.8 % (37.5-50.1); Hemoglobin 14.2 g/dL (12.9-16.9); Immature Granulocytes % 0.5 % (0-4); Lymphocytes # 2.1 K/mcL (0.6-4.6); Mean Corpuscular HGB Conc 31.7 g/dL (31.6-35.5); Mean Corpuscular Volume 94.7 fL (83.0-100.0); Monocytes # 0.5 K/mcL (0.0-1.3); Monocytes % 8.2 %; Neutrophils # 3.3 K/mcL (1.6-8.9); Platelet Count 127 K/mcL (140-400); Red Blood Count 4.73 M/mcL (4.19-5.50); Red Cell Distribution Width 14.2 % (11.5-14.5); Segmented Neutrophils % 53.7 %
[2017-02-07 04:32] LABS: BUN/Creatinine Ratio 16 (6-26); Blood Urea Nitrogen 16 mg/dL (8-26); Calcium 8.6 mg/dL (8.6-10.8); Carbon Dioxide 26 mEq/L (19-29); Chloride 105 mEq/L (98-109); Glucose 103 mg/dL (70-99); Osmolality,Calculated 289 (280-300); Potassium 4.2 mEq/L (3.5-4.5); Sodium 139 mEq/L (136-145); eGFR For African Americans > 60 (> 60); eGFR For Non-African Americans > 60 (> 60)
[2017-02-07] MEDS: Ipratropium/Albuterol Neb 3 ML IH SCH ×3 (06:23→10:06)
--- NOTE | 2017-02-07 07:43 | Discharge Summary ---
Addendum entered and electronically signed by Shyanne Guerrero MD 02/07/17 11:38: AM interval history addendum: Denies bleeding gums. No bloody stools. No coughing of blood this AM. Following education on inhalers, said he is "ready" to go home. O2 sat >94% AM. Addendum entered and electronically signed by Shyanne Guerrero MD 02/07/17 11:17: Added discharge diagnosis: COPD Priority: Secondary Status: Chronic Original Note: <Shyanne Guerrero - Last Filed: 02/07/17 11:12> Date of Encounter: 02/07/17 Time of Encounter: 07:39 - Discharge Diagnosis (1) Atrial flutter Priority: Primary Status: Acute Qualifiers: Atrial flutter type: typical Qualified Code(s): I48.3 - Typical atrial flutter (2) CAD (coronary artery disease) Priority: Primary Status: Chronic Qualifiers: Coronary Disease-Associated Artery/Lesion type: [place] artery [place] vs. transplanted heart: [place] heart Associated angina: with unspecified angina Qualified Code(s): I25.119 - Atherosclerotic heart disease of [place] coronary artery with unspecified angina pectoris (3) DVT prophylaxis Priority: Secondary Status: Acute (4) Hypertension Priority: Secondary Status: Chronic Qualifiers: Hypertension type: essential hypertension Qualified Code(s): I10 - Essential (primary) hypertension (5) Hyperlipidemia Priority: Secondary Status: Chronic Qualifiers: Hyperlipidemia type: unspecified Qualified Code(s): E78.5 - Hyperlipidemia , unspecified - Discharge Medications Prescriptions: Albuterol Sulfate [Albuterol Inhaler] 1 puff IH Q6HR PRN #1 inhaler PRN Reason: Bronchospasm Budesonide/Formoterol 160/4.5 [Symbicort 160/4.5] 2 puff IH BIDR #1 hfa.aer.ad Metoprolol [Lopressor] 50 mg PO BID #30 Home Medications: Cholecalciferol (D-3) [Vitamin D] 2,000 unit PO DAILY 02/05/17 [History] Isosorbide MONOnitrate (24 HR) [Imdur] 60 mg PO DAILY 02/05/17 [History] Losartan [Cozaar] 25 mg PO DAILY 02/05/17 [History] Magnesium Oxide [Mag-Ox] 400 mg PO DAILY 02/05/17 [History] Omeprazole [PriLOSEC] 40 mg PO DAILY 02/05/17 [History] Ranitidine HCl [Zantac] 150 mg PO BID 02/05/17 [History] Ranolazine [Ranexa] 500 mg PO BID 02/05/17 [History] Rosuvastatin [Crestor] 40 mg PO HS 02/05/17 [History] Albuterol Sulfate [Albuterol Inhaler] 1 puff IH Q6HR PRN #1 inhaler 02/07/17 [Rx ] Aspirin Enteric Coated [Aspirin EC] 81 mg PO DAILY #30 unit 02/07/17 [Rx] Budesonide/Formoterol 160/4.5 [Symbicort 160/4.5] 2 puff IH BIDR #1 hfa.aer.ad 02/07/17 [Rx] Metoprolol [Lopressor] 50 mg PO BID #30 02/07/17 [Rx] Rivaroxaban [Xarelto] 20 mg PO 1700 #0 tab 02/07/17 [Rx] Allergies/Adverse Reactions: 3 Allergy/AdvReac Type Severity Reaction Status Date / Time No Known Allergies Allergy Verified 12/21/15 09:43 Procedures/tests Complete & Pending: Procedures Performed prior 72 hours Category Date Time Status ECG 12 lead ECG [ECG] AM 0600 Y 02/06/17 06:00 Completed Chest X-Ray 02/05/17 15:59 IMPRESSION: No acute cardiopulmonary disease. D/ / Dallin Diego MD / Dallin Diego MD Interpreting Provider: Dallin Diego MD Date of admission: 02/05/17 18:50 Primary care physician: Eleni Pope Consults: 02/05/17 21:56 Consult to Cardiology [CONS] Routine Comment: Consulting Provider: Cardiology Kimberly Reason for Consult: afib with RVR, CAD Call Completed: No Discharging clinician: Shyanne Guerrero Anticipated date of discharge: 02/07/17 - Patient Status Disposition: Home, Self-Care Condition: Fair Functional capacity at discharge: independent ambulation (as tolerated. Drive home with assistance. Added note: Per nurse, patient refuses and insists on driving himself.) Overall status at discharge: patient is progressing back to baseline - Discharge Instructions Instructions: Atrial Flutter (DC) Follow Up With: Hiram Rodriguez MD [Partnered Physician] - (group controller office will contact patient for an appt.) Eleni Pope MD [Primary Care Provider] - 02/17/17 1:45 pm Additional Instructions: -Please follow up with primary care provider within 1 week -Please follow-up with Dr. Hiram Rodriguez in 4-6 weeks. 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 Premature discontinuation of any oral anticoagulant, including rivaroxaban, increases the risk of thrombotic events. If anticoagulation with rivaroxaban is discontinued for a reason other than pathological bleeding or completion of a course of therapy, please present to your PCP to consider coverage with another anticoagulant. -We discussed that rivaroxaban increases your risk of bleeding. Please proceed to the emergency room in the event of any fall or trauma or unexplained bleeding , such as bleeding gums, bloody stools or coughing up blood. -Proceed to the emergency room with new onset of fever, increased shortness of breath, chest pain or new onset of symptoms - Diet and Activity Activity: increase activity as tolerated, wear oxygen at all times Diet: low fat, low cholesterol Interval History: No acute events overnight. This AM, pt denies chest pain, SOB, abdominal pain, or headache. Update: 11 AM. Patient drove to ER. Should be driven home by acquaintance or via transport back home. Per nurse: Pt refuses either options and elects to drive home instead. Hospital course: Mr. Olivarez is a 76 y male with history of coronary artery disease s/p CABG; most recent [facility] 2014 s/p PTCA of proximal and mid RCA. The patient additionally has a history of hypertension and hyperlipidemia. He presented to the ER with EKG demonstrating atrial flutter with 2:1, 3:1 and 4:1 conduction. The patient was admitted for management of newly diagnosed atrial flutter. On further questioning, patient reported symptoms consistent with atrial flutter with RVR. Transthoracic Echo in August of 2016 demonstrated an EF 55% with mild MR. Chest x-ray was unremarkable. Troponin and TSH within normal limits. Cardiology was placed on consult CHA2Ds Vasc equaled 4 (age, CAD, HTN). A recommendation was made with full anticoagulation, the service discussed coumadin vs. NOAC and he preferred NOAC. The patient was stable while hospitalized. Rate control strategy was commenced with a plan for full AC for 1 month and subsequent follow-up with Dr. Hiram Rodriguez in the outpatient setting for evaluation for possible ablation. - Time Spent with Patient Total time spent providing and/or coordinating discharge services: - Constitutional Vitals: Temp Pulse Resp BP Pulse Ox 97.6 F 98 18 105/67 94 02/07/17 04:26 02/07/17 04:26 02/07/17 04:26 02/07/17 04:02/07/17 04:26 General appearance: Present: cooperative, A&O X 3, no acute distress, answers questions appropriately - Respiratory Respiratory exam: Present: wheezes (mild wheezing b/l in upper lung [place] ). Absent: accessory muscle use, chest wall tenderness, respiratory distress - Cardiovascular Cardiovascular exam: Present: RRR, +S1, +S2. Absent: diastolic murmur, gallop, rubs, systolic murmur - GI/Abdominal GI/Abdominal exam: Present: normal bowel sounds, soft, no peritoneal signs. Absent: distended, tenderness <Tamiko,Colton P - Last Filed: 02/07/17 17:52> Date of Encounter: 02/07/17 Procedures/tests Complete & Pending: Procedures Performed prior 72 hours Category Date Time Status ECG 12 lead ECG [ECG] AM 0600 Y 02/06/17 06:00 Completed Date of admission: 02/05/17 18:50 Primary care physician: Eleni Pope Consults: 02/05/17 21:56 Consult to Cardiology [CONS] Routine Comment: Consulting Provider: Cardiology Kimberly Reason for Consult: afib with RVR, CAD Call Completed: No Hospital course: Mr. Olivarez is a 76 year old male - Time Spent with Patient Total time spent providing and/or coordinating discharge services: - Constitutional Vitals: Temp Pulse Resp BP Pulse Ox 97.3 F L 115 18 117/70 99 02/07/17 07:43 02/07/17 07:43 02/07/17 10:06 02/07/17 07:43 02/07/17 10:06 - Attending Attestation I examined this patient and my medical decision-making was reviewed with the Resident Physician. I agree with the documented findings, disposition and treatment plan as described except to the extent set forth below.
[2017-02-07 07:50] VITALS: BP 117/70
[2017-02-07] MEDS: Aspirin Enteric Coated 81 MG Tablet PO SCH (08:47)
[2017-02-07] MEDS: Ranolazine 500 MG TAB.ER.12H PO SCH (08:47)
[2017-02-07] MEDS: Famotidine 20 MG TABLET PO SCH (08:47)
[2017-02-07] MEDS: Cholecalciferol (D-3) 1,000 UNIT TABLET PO SCH (08:47)
[2017-02-07] MEDS: Isosorbide MONOnitrate (24 HR) 60 MG TAB.ER.24H PO SCH (08:47)
[2017-02-07] MEDS: Magnesium Oxide 400 MG TABLET PO SCH (08:47)
--- NOTE | 2017-02-10 17:30 | Electrocardiograph Report ---
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
--- NOTE | 2017-02-10 20:48 | Electrocardiograph Report ---
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
== END 2017-02-07 11:11 | disposition home or self-care (01) ==
LOC: 2ANU 15:46 → EMEROO 15:46 → 2ANU 19:48
PROVIDERS: ADMIT Internal Medicine; ATTEND Internal Medicine

== ENCOUNTER 2017-03-01 01:50 | Observation (INO) ==
[2017-03-01] MEDS ORDERED: Ipratropium/Albuterol Neb 3 ML ONE (01:57)
[2017-03-01] MEDS ORDERED: Ipratropium/Albuterol Neb 3 ML IH ONE (02:02)
[2017-03-01 02:15] LABS: Basophils # 0.1 K/mcL (0.0-0.2); Basophils % 0.6 %; Eosinophils # 0.2 K/mcL (0.0-0.6); Eosinophils % 2.6 %; Hematocrit 49.2 % (37.5-50.1); Hemoglobin 15.3 g/dL (12.9-16.9); Immature Granulocytes % 0.3 % (0-4); Lymphocytes % 11.4 %; Mean Corpuscular HGB Conc 31.1 g/dL (31.6-35.5); Mean Corpuscular Hemoglobin 29.1 pg (28.0-33.3); Mean Corpuscular Volume 93.5 fL (83.0-100.0); Mean Platelet Volume 10.7 fL (9.4-12.4); Monocytes # 0.8 K/mcL (0.0-1.3); Monocytes % 8.9 %; Neutrophils # 6.9 K/mcL (1.6-8.9); Platelet Count 177 K/mcL (140-400); Red Blood Count 5.26 M/mcL (4.19-5.50); Red Cell Distribution Width 14.2 % (11.5-14.5); Segmented Neutrophils % 76.2 %
[2017-03-01 02:29] LABS: BUN/Creatinine Ratio 14 (6-26); Blood Urea Nitrogen 15 mg/dL (8-26); Calcium 9.4 mg/dL (8.6-10.8); Carbon Dioxide 32 mEq/L (19-29); Chloride 101 mEq/L (98-109); Glucose 127 mg/dL (70-99); Osmolality,Calculated 290 (280-300); Potassium 4.9 mEq/L (3.5-4.5); Sodium 139 mEq/L (136-145); eGFR For African Americans > 60 (> 60); eGFR For Non-African Americans > 60 (> 60)
[2017-03-01] MEDS ORDERED: methylPREDNISolone 125 MG/2 ML VIAL IM ONE (03:53)
[2017-03-01] MEDS ORDERED: Furosemide 40 MG/4 ML VIAL IVP ONE (04:07)
[2017-03-01 04:35] LABS: Magnesium 1.9 mg/dL (1.6-2.6)
--- NOTE | 2017-03-01 04:35 | Emergency Department Note ---
Disposition Clinical Impression: Acute exacerbation of chronic obstructive airways disease Congestive heart failure Qualifiers: Congestive heart failure type: unspecified congestive heart failure type Congestive heart failure chronicity: unspecified congestive heart failure chronicity Qualified Code(s): I50.9 - Heart failure, unspecified Atrial flutter Qualifiers: Atrial flutter type: unspecified Qualified Code(s): I48.92 - Unspecified atrial flutter Disposition: Admitted As Inpatient Condition: Fair Time of Disposition: 04:39 SOB HPI - General Chief Complaint: ED Shortness of Breath/Dyspnea Stated Complaint: sob Time Seen by Provider: 03/01/17 02:43 Source: patient Limitations: no limitations Nursing Notes Reviewed: Yes Vital Signs Reviewed: Yes - History of Present Illness Patient is a 76-year-old male who presents to [facility] ED with a chief complaint of difficulty breathing. States his symptoms have been getting worse over the last day. Patient was recently admitted to our facility with COPD exacerbation as well as atrial flutter. He has been scheduled for an ablation by cardiology on March 29. Patient does use Symbicort inhaler twice a day and then has a rescue inhaler. States he does have a nebulizer but he does not ever use it. Patient is normally not on any home oxygen but states he does use at night 3 L. Denies any chest pain, nausea with vomiting, fevers or chills, abdominal pain, problems with urination or bowel movements. Pt Subjective Complaint: shortness of breath Onset (ago): day(s) Severity: moderate Consistency/Duration: constant Improves with: oxygen, bronchodilators Worsens with: exertion Known history of: COPD Associated symptoms: Denies: chest pain, fever, cough, nausea/vomiting, abdominal pain Treatment prior to arrival: none Cough present: No Sputum production: No - Related Data Home oxygen amount: 3 liters Home Medications Medication Instructions Recorded Confirmed Cholecalciferol (D-3) [Vitamin D] 2,000 unit PO DAILY 02/05/17 03/01/17 Isosorbide MONOnitrate (24 HR) 60 mg PO DAILY 02/05/17 03/01/17 [Imdur] Losartan [Cozaar] 25 mg PO DAILY 02/05/17 03/01/17 Magnesium Oxide [Mag-Ox] 400 mg PO DAILY 02/05/17 03/01/17 Omeprazole [PriLOSEC] 40 mg PO DAILY 02/05/17 03/01/17 Ranitidine HCl [Zantac] 150 mg PO BID 02/05/17 03/01/17 Ranolazine [Ranexa] 500 mg PO BID 02/05/17 03/01/17 Rosuvastatin [Crestor] 40 mg PO HS 02/05/17 03/01/17 Fluticasone Propionate Nasal 50 mcg NS BID 03/01/17 03/01/17 [Flonase] Previous Rx's Medication Instructions Recorded Albuterol Sulfate [Albuterol 1 puff IH Q6HR PRN #1 inhaler 02/07/17 Inhaler] Aspirin Enteric Coated [Aspirin EC] 81 mg PO DAILY #30 unit 02/07/17 Budesonide/Formoterol 160/4.5 2 puff IH BIDR #1 hfa.aer.ad 02/07/17 [Symbicort 160/4.5] Metoprolol [Lopressor] 50 mg PO BID #30 02/07/17 Rivaroxaban [Xarelto] 20 mg PO 1700 #0 tab 02/07/17 Allergies Allergy/AdvReac Type Severity Reaction Status Date / Time No Known Allergies Allergy Verified 12/21/15 09:43 All systems ED: reviewed and negative except as stated. Past Medical History - Past Medical History Attestation: Yes The following information was validated with the patient. Source: patient Medical history: Reports: COPD, coronary artery disease, GERD, hyperlipidemia, hypertension Surgical history: Reports: coronary bypass (CABG) Psychiatric history: Reports: no psych history - Social History Smoking Status: Current every day smoker Smokeless Tobacco Status: No Alcohol use: Reports: none Drug use: Reports: none Physical Exam - General Limitations: no limitations General appearance: alert, in no apparent distress - Head Head exam: atraumatic, normocephalic, normal inspection - Eye Eye exam: Present: normal appearance, EOMI - ENT ENT exam: normal exam, normal oropharynx, mucous membranes moist - Neck Neck exam: Present: normal inspection, full ROM, trachea midline - Chest Chest inspection: Present: normal inspection, symmetric chest wall rise - Respiratory Respiratory exam: Present: wheezes. Absent: respiratory distress - Cardiovascular Cardiovascular exam: Present: normal rhythm, tachycardia, normal heart sounds - Abdominal Exam Abdominal exam: Present: soft, Non-Tender. Absent: tenderness, distention, guarding, rebound, rigidity - Extremities Exam Extremities exam: Present: normal inspection, full ROM. Absent: tenderness, pedal edema - Back Exam Back exam: Present: normal inspection, full ROM. Absent: tenderness - Neurological Exam Neurological exam: Present: alert - Psychiatric Psychiatric exam: Present: normal affect, normal mood - Skin Skin exam: Present: warm, dry, intact, normal color Course Course Narrative: Patient seen and examined. COPD exacerbation likely. He has diffuse wheezes all over. Triple DuoNeb ordered in triage. Cardiopulmonary workup initiated. - Reevaluation(s) Reevaluation #1: IV Solu-Medrol ordered as well. His BNP levels are elevated in the 600s. With his persistent atrial flutter and no signs of some mild congestion on chest x- ray, concern for new onset heart failure. I discussed with the patient and he agrees with admission. We will admit for COPD exacerbation, new onset CHF, atrial flutter. Discussed with hospitalist Dr. Hawkins who has accepted patient for admission. Time: 04:38 Vital Signs Temperature 97.6 F 03/01/17 01:50 Pulse Rate 104 03/01/17 01:50 Respiratory Rate 24 03/01/17 01:50 Blood Pressure 160/99 03/01/17 01:50 O2 Sat by Pulse Oximetry 97 03/01/17 01:50 Temperature 97.6 F 03/01/17 01:50 Pulse Rate 100 03/01/17 04:07 Respiratory Rate 18 03/01/17 04:54 Blood Pressure 149/112 03/01/17 04:54 O2 Sat by Pulse Oximetry 95 03/01/17 04:07 Oxygen Delivery Oxygen Delivery Nasal Cannula Shortness of Breath/Dyspnea - Medical Records Medical records reviewed: Yes I reviewed the patient's medical records. - Lab Data Lab results reviewed: Yes I reviewed the patient's lab results. Result diagrams: 03/01/17 02:09 03/01/17 02:09 Lab Results 03/01/17 03/01/17 03/01/17 Range/Units 02:09 02:09 02:09 WBC 9.0 (4.3-11.1) K/mcL RBC 5.26 (4.19-5.50) M/mcL Hgb 15.3 (12.9-16.9) g/dL Hct 49.2 (37.5-50.1) % MCV 93.5 (83.0-100.0) fL MCH 29.1 (28.0-33.3) pg MCHC 31.1 L (31.6-35.5) g/dL RDW 14.2 (11.5-14.5) % Plt Count 177 (140-400) K/mcL MPV 10.7 (9.4-12.4) fL Immature Gran % 0.3 (0-4) % Seg Neutrophils % 76.2 % Lymphocytes % 11.4 % Monocytes % 8.9 % Eosinophils % 2.6 % Basophils % 0.6 % Neutrophils # 6.9 (1.6-8.9) K/mcL Lymphocytes # 1.0 (0.6-4.6) K/mcL Monocytes # 0.8 (0.0-1.3) K/mcL Eosinophils # 0.2 (0.0-0.6) K/mcL Basophils # 0.1 (0.0-0.2) K/mcL Sodium 139 (136-145) mEq/L Potassium 4.9 H (3.5-4.5) mEq/L Chloride 101 (98-109) mEq/L Carbon Dioxide 32 H (19-29) mEq/L BUN 15 (8-26) mg/dL Creatinine 1.04 (0.72-1.25) mg/dL Est GFR ( Amer) > 60 (> 60) Est GFR (Non-Af Amer) > 60 (> 60) BUN/Creatinine Ratio 14 (6-26) Glucose 127 H (70-99) mg/dL Calculated Osmolality 290 (280-300) Lactic Acid 0.7 (0.5-2.2) mmol/L Calcium 9.4 (8.6-10.8) mg/dL Magnesium 1.9 (1.6-2.6) mg/dL Troponin I (0-0.03) ng/mL B-Natriuretic Peptide (0-100) pg/mL 03/01/17 03/01/17 Range/Units 02:09 02:09 WBC (4.3-11.1) K/mcL RBC (4.19-5.50) M/mcL Hgb (12.9-16.9) g/dL Hct (37.5-50.1) % MCV (83.0-100.0) fL MCH (28.0-33.3) pg MCHC (31.6-35.5) g/dL RDW (11.5-14.5) % Plt Count (140-400) K/mcL MPV (9.4-12.4) fL Immature Gran % (0-4) % Seg Neutrophils % % Lymphocytes % % Monocytes % % Eosinophils % % Basophils % % Neutrophils # (1.6-8.9) K/mcL Lymphocytes # (0.6-4.6) K/mcL Monocytes # (0.0-1.3) K/mcL Eosinophils # (0.0-0.6) K/mcL Basophils # (0.0-0.2) K/mcL Sodium (136-145) mEq/L Potassium (3.5-4.5) mEq/L Chloride (98-109) mEq/L Carbon Dioxide (19-29) mEq/L BUN (8-26) mg/dL Creatinine (0.72-1.25) mg/dL Est GFR ( Amer) (> 60) Est GFR (Non-Af Amer) (> 60) BUN/Creatinine Ratio (6-26) Glucose (70-99) mg/dL Calculated Osmolality (280-300) Lactic Acid (0.5-2.2) mmol/L Calcium (8.6-10.8) mg/dL Magnesium (1.6-2.6) mg/dL Troponin I 0.03 (0-0.03) ng/mL B-Natriuretic Peptide 618 H (0-100) pg/mL - Radiology Data Radiology results reviewed: Yes I reviewed the patient's radiology results. Chest X-Ray 03/01/17 01:53 IMPRESSION: Questionable early CHF with increased markings at the lung bases. Otherwise stable chest. COPD. D/ / Dallin Diego MD / Dallin Diego MD Interpreting Provider: Dallin Diego MD - EKG Data EKG attestation: Yes I reviewed and interpreted this EKG. EKG results narrative: EKG done at 157 shows atrial flutter with a rate of [address] depression noted in V5 and V6. No acute ST elevation. Normal axis. Unchanged from prior EKG done 02/06/2017 Attestation Statement - Attestation Attestation: I examined this patient and my medical decision-making was reviewed with the Resident Physician. I agree with the documented findings, disposition and treatment plan as described except to the extent set forth below. Patient ED with a chief complaint of difficulty in breathing. Increasing over the past day. Recent admission for COPD exacerbation. He also has atrial fibrillation and is scheduled for an outpatient ablation coming up soon. On examination he is tachypnea with expiratory wheezing. Plan. The patient is much improved after some duo nebs. His workup reveals a new CHF with an elevated BNP. We will admit for further cardiac workup. Respiratory status improved and hemodynamically stable at this time.
--- NOTE | 2017-03-01 08:42 | Internal Med History&Physical ---
Date of Encounter: 03/01/17 Time of Encounter: 08:39 Assessment and Plan (1) Atrial flutter Current visit: Yes Status: Acute Patient is in atrial flutter. Rate round 100s. Patient is on metoprolol 50 mg twice a day. I will add Cardizem 120 mg daily starting now. Continue Xarelto for stroke prophylaxis. Qualifiers: Atrial flutter type: unspecified Qualified Code(s): I48.92 - Unspecified atrial flutter (2) CAD (coronary artery disease) Current visit: No Status: Chronic He has a history of cabg. Denies active chest pain. Will check 3 sets of cardiac markers. Qualifiers: Coronary Disease-Associated Artery/Lesion type: [place] artery [place] vs. transplanted heart: [place] heart Associated angina: with unspecified angina Qualified Code(s): I25.119 - Atherosclerotic heart disease of [place] coronary artery with unspecified angina pectoris (3) Congestive heart failure Current visit: Yes Status: Acute I will start the patient on Lasix 20 mg IV daily has eased Lasix raffaele. Monitor Intake and output Qualifiers: Congestive heart failure type: unspecified congestive heart failure type Congestive heart failure chronicity: unspecified congestive heart failure chronicity Qualified Code(s): I50.9 - Heart failure, unspecified Internal Medicine - H&P: HPI Chief complaint: sob History of present illness: Mr. Olivarez is a 76 year old male with multiple medical problems including coronary artery disease status was cabbage, COPD on nighttime oxygen, hypertension and history of atrial flutter on Xarelto for anticoagulation supposed to have an ablation on March 29 presents to the emergency room with a man complaining of shortness of breath. Patient started noticing that he is more short of breath than usual in addition to the crease exercise tolerance and fatigue. Patient notice some swelling in both lower extremities. He denies any increased sputum production fever chills. Patient is in atrial flutter rate 100. Past Med Surg Social Fam HX - Past Medical History Medical history: COPD, coronary artery disease, GERD, hyperlipidemia, hypertension Psychiatric history: no psych history - Past Surgical History Surgical History: coronary bypass (CABG) - Social History Smoking Status: Current every day smoker Packs per day: 0.5 Smokeless Tobacco Status: No Alcohol use: none Drug use: none - Family History Father Hx Family Cardiac Disorders: Yes ([place]) Internal Medicine - H&P: Meds Cholecalciferol (D-3) [Vitamin D] 2,000 unit PO DAILY 02/05/17 [History] Isosorbide MONOnitrate (24 HR) [Imdur] 60 mg PO DAILY 02/05/17 [History] Losartan [Cozaar] 25 mg PO DAILY 02/05/17 [History] Magnesium Oxide [Mag-Ox] 400 mg PO DAILY 02/05/17 [History] Omeprazole [PriLOSEC] 40 mg PO DAILY 02/05/17 [History] Ranitidine HCl [Zantac] 150 mg PO BID 02/05/17 [History] Ranolazine [Ranexa] 500 mg PO BID 02/05/17 [History] Rosuvastatin [Crestor] 40 mg PO HS 02/05/17 [History] Albuterol Sulfate [Albuterol Inhaler] 1 puff IH Q6HR PRN #1 inhaler 02/07/17 [Rx ] Aspirin Enteric Coated [Aspirin EC] 81 mg PO DAILY #30 unit 02/07/17 [Rx] Budesonide/Formoterol 160/4.5 [Symbicort 160/4.5] 2 puff IH BIDR #1 hfa.aer.ad 02/07/17 [Rx] Metoprolol [Lopressor] 50 mg PO BID #30 02/07/17 [Rx] Rivaroxaban [Xarelto] 20 mg PO 1700 #0 tab 02/07/17 [Rx] Fluticasone Propionate Nasal [Flonase] 50 mcg NS BID 03/01/17 [History] 3 Allergy/AdvReac Type Severity Reaction Status Date / Time No Known Allergies Allergy Verified 12/21/15 09:43 All Systems PM: A 10-system review of systems was performed and is negative for pertinent findings except as documented above in the HPI. Review of systems: 10 point review of systems is negative except for HPI - Constitutional Vitals: Temp Pulse Resp BP Pulse Ox 98 F 106 15 125/79 92 03/01/17 08:17 03/01/17 08:17 03/01/17 08:17 03/01/17 08:17 03/01/17 08:17 Exam: Gen.: patient is alert oriented times 3 cardiac: normal S1 S2 no additional sounds or murmurs chest: basal rales abdomen soft nontender nondistended normal bowel sounds lower extremity 1+ swelling. Neuro: no new focal deficits Internal Med - H&P Results - Labs CBC & Chem 7: 03/01/17 02:09 03/01/17 02:09
[2017-03-01 09:08] LABS: Potassium 4.4 mEq/L (3.5-4.5)
--- NOTE | 2017-03-01 09:37 | Cardiology Consult Note ---
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 He may benefit from nebulizer at home for his severe COPD. Primary therapy per hospitalist team. (2) Atrial flutter Current Visit: Yes Status: Acute Continue rate control and xarelto for anticoagulation. Scheduled for ablation 03/29. His rate is controlled at <110 and will typically be lower once his stressors (respiratory) improves. Qualifiers: Atrial flutter type: unspecified Qualified Code(s): I48.92 - Unspecified atrial flutter (3) Congestive heart failure Current Visit: Yes Status: Acute Will need lasix 20mg po QD as outpatient. Qualifiers: Congestive heart failure type: diastolic Congestive heart failure chronicity: unspecified congestive heart failure chronicity Qualified Code(s) : I50.30 - Unspecified diastolic (congestive) heart failure (4) CAD (coronary artery disease) Current Visit: No Status: Chronic sp CABG. Troponin adynamic, likely demand ischemia from his COPD exacerbation. Continue to trend troponin and call if it markedly elevates. Continue aspirin and medical management. Qualifiers: Coronary Disease-Associated Artery/Lesion type: [place] artery [place] vs. transplanted heart: [place] heart Associated angina: with unspecified angina Qualified Code(s): I25.119 - Atherosclerotic heart disease of [place] coronary artery with unspecified angina pectoris Discussion w patient/family: The assessment and plan as outlined above was discussed with the patient and/or family members who expressed understanding and agreement. All questions were answered. Thank you for involving us in the care of your patient. Please call with any questions. History of Present Illness Consult date: 03/01/17 History of present illness: Mr. Olivarez is a 76 year old male with PMHx significant for CAD s/p CABG, GERD, HLD, HTN, and severe COPD recently diagnosed with atrial flutter 02/06/2017 presents with dyspnea. It started 2 days ago and was initially mild but rapidly progressed the next day with profound dyspnea on exertion which was severe and limited him after a few yards. It was improved with rest and oxygen. He denies fever, chills, cough, edema or PND. He has no chest/jaw/arm discomfort. Prior CV testing: TTE 08/2016: EF 55%, mild LVDD, mild MR LHC 10/26/14: severe 3v CAD, successful PTCA or proximal and mid RCA; s/p 1 of 3 patent bypass grafts--GONGORA to mLAD occluded, SVG to RCA is occluded, SVG to OM2 patent. Past Med Surg Social Fam HX - Past Medical History Medical history: COPD, coronary artery disease, GERD, hyperlipidemia, hypertension Psychiatric history: no psych history - Past Surgical History Surgical History: coronary bypass (CABG) - Social History Smoking Status: Current every day smoker Packs per day: 0.5 Smokeless Tobacco Status: No Alcohol use: none Drug use: none - Family History Father Hx Family Cardiac Disorders: Yes ([place]) Medications and Allergies Cholecalciferol (D-3) [Vitamin D] 2,000 unit PO DAILY 02/05/17 [History] Isosorbide MONOnitrate (24 HR) [Imdur] 60 mg PO DAILY 02/05/17 [History] Losartan [Cozaar] 25 mg PO DAILY 02/05/17 [History] Magnesium Oxide [Mag-Ox] 400 mg PO DAILY 02/05/17 [History] Omeprazole [PriLOSEC] 40 mg PO DAILY 02/05/17 [History] Ranitidine HCl [Zantac] 150 mg PO BID 02/05/17 [History] Ranolazine [Ranexa] 500 mg PO BID 02/05/17 [History] Rosuvastatin [Crestor] 40 mg PO HS 02/05/17 [History] Albuterol Sulfate [Albuterol Inhaler] 1 puff IH Q6HR PRN #1 inhaler 02/07/17 [Rx ] Aspirin Enteric Coated [Aspirin EC] 81 mg PO DAILY #30 unit 02/07/17 [Rx] Budesonide/Formoterol 160/4.5 [Symbicort 160/4.5] 2 puff IH BIDR #1 hfa.aer.ad 02/07/17 [Rx] Metoprolol [Lopressor] 50 mg PO BID #30 02/07/17 [Rx] Rivaroxaban [Xarelto] 20 mg PO 1700 #0 tab 02/07/17 [Rx] Fluticasone Propionate Nasal [Flonase] 50 mcg NS BID 03/01/17 [History] 3 Allergy/AdvReac Type Severity Reaction Status Date / Time No Known Allergies Allergy Verified 12/21/15 09:43 All Systems Review: A 10-system review of systems was performed and is negative for pertinent findings except as documented above in the HPI. - Constitutional Constitutional: no chills, no fever(s) - EENT Eyes: no blurred vision, no loss of vision Nose, mouth and throat: no bleeding gums, no epistaxis - Cardiovascular Cardiovascular: no chest pain at rest, no chest pain with exertion - Respiratory Respiratory: dyspnea, no hemoptysis - Gastrointestinal Gastrointestinal: no hematemesis, no hematochezia - Genitourinary Genitourinary: no dysuria, no hematuria - Musculoskeletal Musculoskeletal: no arthralgias, no myalgias - Integumentary Integumentary: no erythema, no rash - Neurological Neurological: no focal weakness, no loss of vision - Psychiatric Psychiatric: no anxiety, no depression - Hematological/Lymphatic Hematologic/Lymphatic: no easy bleeding, no easy bruising Physical Examination Vital Signs, Last 4 Hours Temp Pulse Resp BP Pulse Ox 03/01/17 08:17 98 F 106 15 125/79 92 General: Conversant HEENT: Atraumatic Neck: No JVD Cardiac: Other (tachy s1 s2) Lungs: Other (diminished bs bilateral) Neuro: Alert and responsive Abdomen: Soft Skin: No rashes noted on visualized skin Musculoskeletal: No Chest Wall Tenderness Extremities: No Edema Results 03/01/17 02:09 03/01/17 08:48 Lab Results 03/01/17 03/01/17 08:48 08:48 Potassium 4.4 Magnesium 2.0 Troponin I 0.05 H* - EKG Interpretation EKG results cardiology: personally reviewed (atrial flutter with mild ventricular response) Consult Discharge Plan - Plan Referrals: Eleni Pope MD [Primary Care Provider] -
[2017-03-01] MEDS: Magnesium Oxide 400 MG TABLET PO SCH (09:42)
[2017-03-01] MEDS: Isosorbide MONOnitrate (24 HR) 60 MG TAB.ER.24H PO SCH (09:42)
[2017-03-01] MEDS: Famotidine 20 MG TABLET PO SCH ×2 (09:42→20:13)
[2017-03-01] MEDS: Aspirin Enteric Coated 81 MG Tablet PO SCH (09:42)
[2017-03-01] MEDS: Diltiazem CD (24hr) 120 MG CAPSULE PO SCH (09:42)
[2017-03-01] MEDS: Fluticasone Propionate Nasal 50 MCG/SPRAY BOTTLE NS SCH ×2 (09:43→20:13)
[2017-03-01] MEDS: Ranolazine 500 MG TAB.ER.12H PO SCH ×2 (09:43→20:13)
[2017-03-01] MEDS ORDERED: Budesonide/Formoterol 160/4.5 MDI IH SCH (10:00)
--- NOTE | 2017-03-01 10:23 | Event Note ---
Date of Encounter: 03/01/17 Time of Encounter: 10:20 - Cardiology Event Note Cardiology will sign off, reconsult as needed.
[2017-03-01] MEDS ORDERED: *HR* Rivaroxaban 10 MG TABLET PO SCH (17:00)
[2017-03-01] MEDS: Budesonide/Formoterol 160/4.5 MDI IH SCH (21:55)
[2017-03-02 06:23] LABS: Basophils % 0.1 %; Hematocrit 46.5 % (37.5-50.1); Hemoglobin 14.8 g/dL (12.9-16.9); Immature Granulocytes % 0.6 % (0-4); Lymphocytes # 0.9 K/mcL (0.6-4.6); Lymphocytes % 5.5 %; Mean Corpuscular HGB Conc 31.8 g/dL (31.6-35.5); Mean Corpuscular Hemoglobin 29.7 pg (28.0-33.3); Mean Corpuscular Volume 93.2 fL (83.0-100.0); Mean Platelet Volume 11.3 fL (9.4-12.4); Monocytes # 1.1 K/mcL (0.0-1.3); Monocytes % 6.5 %; Neutrophils # 14.1 K/mcL (1.6-8.9); Platelet Count 164 K/mcL (140-400); Red Blood Count 4.99 M/mcL (4.19-5.50); Red Cell Distribution Width 14.4 % (11.5-14.5); Segmented Neutrophils % 87.3 %
[2017-03-02 06:35] LABS: BUN/Creatinine Ratio 24 (6-26); Blood Urea Nitrogen 27 mg/dL (8-26); Calcium 9.5 mg/dL (8.6-10.8); Carbon Dioxide 32 mEq/L (19-29); Chloride 101 mEq/L (98-109); Glucose 125 mg/dL (70-99); Magnesium 2.1 mg/dL (1.6-2.6); Osmolality,Calculated 293 (280-300); Potassium 4.3 mEq/L (3.5-4.5); Sodium 138 mEq/L (136-145); eGFR For African Americans > 60 (> 60); eGFR For Non-African Americans > 60 (> 60)
[2017-03-02] MEDS: Budesonide/Formoterol 160/4.5 MDI IH SCH ×2 (07:52→20:32)
[2017-03-02] MEDS: Diltiazem CD (24hr) 120 MG CAPSULE PO SCH (10:43)
[2017-03-02] MEDS: Ranolazine 500 MG TAB.ER.12H PO SCH ×2 (10:43→20:54)
[2017-03-02] MEDS: Furosemide 20 MG/2 ML VIAL IVP SCH (10:43)
[2017-03-02] MEDS: predniSONE 20 MG TABLET PO SCH (10:44)
[2017-03-02] MEDS: Magnesium Oxide 400 MG TABLET PO SCH (10:44)
[2017-03-02] MEDS: Famotidine 20 MG TABLET PO SCH (10:44)
[2017-03-02] MEDS: Isosorbide MONOnitrate (24 HR) 60 MG TAB.ER.24H PO SCH (10:44)
[2017-03-02] MEDS: Aspirin Enteric Coated 81 MG Tablet PO SCH (10:44)
[2017-03-02] MEDS: Fluticasone Propionate Nasal 50 MCG/SPRAY BOTTLE NS SCH ×2 (10:46→20:55)
[2017-03-02] MEDS ORDERED: Azithromycin 500 MG in D5% in Water 250 ML IVPB SCH (11:00)
[2017-03-02] MEDS ORDERED: 0.9 % Sodium Chloride 1,000 ML IVC ONE (11:42)
--- NOTE | 2017-03-02 11:49 | Internal Med Progress Note ---
Date of Encounter: 03/02/17 Time of Encounter: 11:49 - Assessment and plan (1) Acute exacerbation of chronic obstructive airways disease Current Visit: Yes Status: Acute Assessment and plan: Shiv Olivarez is a 76-year-old male with PMH COPD, CAD, hypertension, and atrial flutter on Xarelto who presented to [facility] on 03/01/2017 with complaints of shortness of breath, exercise intolerance and fatigue. He was placed in observation status for further workup and treatment. 1. Acute COPD exacerbation: known hx COPD, wears O2 at at bedtime. Now with increased SOB and diffuse wheezing on exam. Start steroids, DuoNeb's. IV antibiotics as noted below. Supplemental O2 2. Sepsis: With tachycardia, hypotension, WBC 16 K, lactic acid 2.9 ( tachycardia multifactorial with a flutter & possible sepsis, hypotension could be related to sepsis and use of BB with addition of CCB). Chest x-ray without evidence of pneumonia, CT chest with severe emphysema, no infiltrates. Clinically appears respiratory etiology with dyspnea, rhonchorous lung sounds, productive cough. Start Vanco, Zosyn, IV fluids. Sputum, urine, blood cultures and respiratory PCR pending. Monitor repeat lactic acid 3. Atrial flutter: per hx. follows with Dr. Rodriguez, scheduled for ablation 03/29. Vitamin a cardiology who recommended keeping heart rate less than 110. Continue home BB, CCB added on admission. Continue Xarelto 4. Chronic diastolic dysfunction: 08/2016 TTE with EF and mild diastolic dysfunction. CXR with possible early CHF. BNP 618; with some lower extremity edema. Evaluated by cardiology who recommended Lasix 20 mg daily. Repeat echo pending 5. Hypertension: per hx. BP variable and has been soft/borderline with home BB and adding CCB for rate control. Add BP, heart rate parameters. Stop ARB for now. Monitor BP and titrate PRN 6. CAD: per hx. asymptomatic, denies chest pain. Troponin peaked at 0.05. Evaluated by cardiology who noted likely demand ischemia secondary to COPD exacerbation. Troponin trended down. Continue ASA medical management. 7. DVT prophylaxis: Xarelto (2) Atrial flutter Current Visit: Yes Status: Acute Qualifiers: Atrial flutter type: unspecified Qualified Code(s): I48.92 - Unspecified atrial flutter (3) CAD (coronary artery disease) Current Visit: No Status: Chronic Qualifiers: Coronary Disease-Associated Artery/Lesion type: [place] artery [place] vs. transplanted heart: [place] heart Associated angina: with unspecified angina Qualified Code(s): I25.119 - Atherosclerotic heart disease of [place] coronary artery with unspecified angina pectoris (4) Hypertension Current Visit: No Status: Chronic Qualifiers: Hypertension type: essential hypertension Qualified Code(s): I10 - Essential (primary) hypertension (5) DVT prophylaxis Current Visit: No Status: Acute - Subjective Interval history: Seen and examined at bedside, patient is new to me. Information obtained from chart review and patient report. Patient sitting up on edge of bed, complains of persistent shortness of breath. He does have a productive cough. No chest pain. Has some lower extremity edema. No fevers or chills. - Constitutional Vitals: Temp Pulse Resp BP Pulse Ox 97.9 F 118 17 127/64 92 03/02/17 10:50 03/02/17 10:50 03/02/17 10:50 03/02/17 10:50 03/02/17 10:50 General appearance: Present: mild distress, A&O X 3 - Head Head exam: Present: atraumatic, normocephalic - Eye Eye exam: Present: PERRL, conjuntiva pink, sclera anicteric Pupils: Present: PERRL - Neck Neck exam general surgery: Present: supple, trachea midline. Absent: lymphadenopathy - Respiratory Respiratory exam: Present: rhonchi, wheezes. Absent: accessory muscle use, rales - Cardiovascular Cardiovascular exam: Present: irregular rhythm, +S1, +S2, tachycardia. Absent: diastolic murmur, gallop, rubs, systolic murmur Additional comments: Tele: a-fib - GI/Abdominal GI/Abdominal exam: Present: normal bowel sounds, soft, no peritoneal signs. Absent: distended, tenderness - Extremities Exam Extremities exam: Present: pedal edema, warm, radial pulses palpable and symmetrical. Absent: calf tenderness, cyanotic - Neurological Exam Neurological exam: Present: CN II-XII intact, oriented X3, no focal deficits. Absent: pronater drift, facial droop, speech deficit - Skin Skin exam: Present: dry, intact Internal Medicine: Result - Labs CBC & Chem 7: 03/02/17 04:45 03/02/17 04:45 Labs: Short CBC 03/02/17 Range/Units 04:45 WBC 16.1 H D (4.3-11.1) K/mcL Hgb 14.8 (12.9-16.9) g/dL Hct 46.5 (37.5-50.1) % Plt Count 164 (140-400) K/mcL Neutrophils # 14.1 H (1.6-8.9) K/mcL BMP 03/02/17 04:45 Sodium 138 Potassium 4.3 Chloride 101 Carbon Dioxide 32 H BUN 27 H D Creatinine 1.13 Glucose 125 H Calcium 9.5 Cardiac Enzymes 03/01/17 Range/Units 15:00 Troponin I 0.03 (0-0.03) ng/mL - Impressions Impressions Chest CT 03/02/17 10:00 IMPRESSION: Underlying emphysema with stable apical pulmonary nodule Small pleural effusion with adjacent consolidation at the lung bases, likely atelectasis Severe emphysema. D/ / Yoandy Cooper MD / Yoandy Cooper MD Interpreting Provider: Yoandy Cooper MD Consult Discharge Plan - Plan Referrals: Eleni Pope MD [Primary Care Provider] -
[2017-03-02] MEDS ORDERED: Piperacillin/Tazobactam 3.375 GM in D5% in Water (Mini-Bag+) 100 ML IVPB SCH (12:00)
[2017-03-02] MEDS ORDERED: Vancomycin 1,250 MG in D5% in Water 250 ML IVPB SCH ×2 (12:00)
[2017-03-02] MEDS: 0.9 % Sodium Chloride 1,000 ML IVC SCH (13:30)
[2017-03-02] MEDS: *HR* Rivaroxaban 15 MG TABLET PO SCH (17:17)
[2017-03-02 20:43] LABS: Bilirubin,Urine Negative (Negative); Blood,Urine Negative (Negative); Clarity,Urine Clear (Clear); Color,Urine Yellow (Yellow); Glucose,Urine (UA) Normal (Normal); Ketones,Urine Negative (Negative); Leukocyte Esterase,Urine Negative (Negative); Nitrite,Urine Negative (Negative); Protein,Urine Negative (Neg-Trace); Specific Gravity,Urine 1.019 (1.010-1.025); Urobilinogen,Urine Normal (Normal)
[2017-03-02 22:37] LABS: Adenovirus Not Detected (Not Detect); Bordetella Pertussis Not Detected (Not Detect); Chlamydophila pneumoniae Not Detected (Not Detect); Coronavirus 229E Not Detected (Not Detect); Coronavirus HKU1 Not Detected (Not Detect); Coronavirus NL63 Not Detected (Not Detect); Coronavirus OC43 Not Detected (Not Detect); Human Metapneumovirus Not Detected (Not Detect); Human Rhinovirus/Enterovirus Not Detected (Not Detect); Influenza A Subtype 2009 H1 Not Detected (Not Detect); Influenza A Untypeable Not Detected (Not Detect); Influenza B Not Detected (Not Detect); Mycoplasma pneumoniae Not Detected (Not Detect); Parainfluenza Virus 1 Not Detected (Not Detect); Parainfluenza Virus 2 Not Detected (Not Detect); Parainfluenza Virus 3 Not Detected (Not Detect); Parainfluenza Virus 4 Not Detected (Not Detect); Respiratory Syncytial Virus Not Detected (Not Detect)
[2017-03-03] MEDS: 0.9 % Sodium Chloride 1,000 ML IVC SCH ×3 (00:56→23:03)
[2017-03-03 03:22] LABS: Basophils % 0.1 %; Hematocrit 43.2 % (37.5-50.1); Hemoglobin 13.5 g/dL (12.9-16.9); Immature Granulocytes % 0.6 % (0-4); Immature Platelets 8.4 % (1.1-6.1); Lymphocytes # 0.9 K/mcL (0.6-4.6); Lymphocytes % 6.5 %; Mean Corpuscular HGB Conc 31.3 g/dL (31.6-35.5); Mean Corpuscular Hemoglobin 29.1 pg (28.0-33.3); Mean Corpuscular Volume 93.1 fL (83.0-100.0); Monocytes # 0.7 K/mcL (0.0-1.3); Monocytes % 5.2 %; Neutrophils # 12.3 K/mcL (1.6-8.9); Platelet Count 159 K/mcL (140-400); Red Blood Count 4.64 M/mcL (4.19-5.50); Red Cell Distribution Width 14.4 % (11.5-14.5); Segmented Neutrophils % 87.6 %
[2017-03-03 03:38] LABS: Alanine Aminotransferase 18 Units/L (0-55); Albumin 3.2 g/dL (3.5-5.0); Albumin/Globulin Ratio 1.1 (1.1-2.2); Alkaline Phosphatase 66 Units/L (38-126); Aspartate Amino Transferase 12 Units/L (5-34); BUN/Creatinine Ratio 27 (6-26); Bilirubin,Total 0.4 mg/dL (0.2-1.2); Blood Urea Nitrogen 28 mg/dL (8-26); Calcium 8.7 mg/dL (8.6-10.8); Carbon Dioxide 27 mEq/L (19-29); Chloride 104 mEq/L (98-109); Globulin 2.8 g/dL (2.4-3.5); Glucose 219 mg/dL (70-99); Osmolality,Calculated 300 (280-300); Potassium 4.3 mEq/L (3.5-4.5); Sodium 139 mEq/L (136-145); eGFR For African Americans > 60 (> 60); eGFR For Non-African Americans > 60 (> 60)
[2017-03-03] MEDS: predniSONE 20 MG TABLET PO SCH (08:32)
[2017-03-03] MEDS: Budesonide/Formoterol 160/4.5 MDI IH SCH ×2 (08:33→19:46)
[2017-03-03] MEDS ORDERED: methylPREDNISolone 125 MG/2 ML VIAL IVP ONE (08:33)
[2017-03-03] MEDS: Ranolazine 500 MG TAB.ER.12H PO SCH ×2 (08:34→20:51)
[2017-03-03] MEDS: Furosemide 20 MG/2 ML VIAL IVP SCH (08:34)
[2017-03-03] MEDS: Magnesium Oxide 400 MG TABLET PO SCH (08:34)
[2017-03-03] MEDS: Isosorbide MONOnitrate (24 HR) 60 MG TAB.ER.24H PO SCH (08:35)
[2017-03-03] MEDS: Famotidine 20 MG TABLET PO SCH (08:35)
[2017-03-03] MEDS: Fluticasone Propionate Nasal 50 MCG/SPRAY BOTTLE NS SCH ×2 (08:35→20:51)
[2017-03-03] MEDS: Aspirin Enteric Coated 81 MG Tablet PO SCH (08:35)
[2017-03-03] MEDS: Diltiazem CD (24hr) 120 MG CAPSULE PO SCH (08:35)
[2017-03-03] MEDS ORDERED: D5% in Water 1,000 ML IVC PRN (08:37)
[2017-03-03] MEDS ORDERED: Dextrose Gel 15 GM PO PRN ×2 (08:37)
[2017-03-03] MEDS ORDERED: *HR* Dextrose 50 % in Water (Syg) 50 ML SYRINGE IVP PRN (08:37)
--- NOTE | 2017-03-03 08:43 | Internal Med Progress Note ---
Date of Encounter: 03/03/17 Time of Encounter: 08:36 - Assessment and plan (1) Acute exacerbation of chronic obstructive airways disease Current Visit: Yes Status: Acute Assessment and plan: Shiv Olivarez is a 76-year-old male with PMH COPD, CAD, hypertension, and atrial flutter on Xarelto who presented to [facility] on 03/01/2017 with complaints of shortness of breath, exercise intolerance and fatigue. He was placed in observation status for further workup and treatment. 1. Acute COPD exacerbation: known hx COPD, wears O2 at bedtime. Now with increased SOB and diffuse wheezing on exam. Cont IV Azithromycin, IV Rocephin, IV steroids, DuoNeb's. Cont home dose O2 2. Sepsis: With tachycardia, hypotension, WBC 16 K, lactic acid 2.9 ( tachycardia multifactorial with a flutter & possible sepsis, hypotension could be related to sepsis and use of BB with addition of CCB). Chest x-ray without evidence of pneumonia, CT chest with severe emphysema, no infiltrates. Clinically appears respiratory etiology with dyspnea, rhonchorous lung sounds, productive cough. Initially treated with IV Vanco, Zosyn, IV fluids. Resp PCR negative. Antibiotics de-escalate it to IV azithromycin, Rocephin. Lactic acid normalized. Sputum, urine, blood cultures pending 3. Atrial flutter: per hx. follows with Dr. Rodriguez, scheduled for ablation 03/29. Admission EKG showed a flutter with heart rates in low 100s. TTE with severely dilated left atrium. Evaluated by cardiology who recommended keeping heart rate less than 110. Continue home BB, CCB added on admission. Continue Xarelto. 4. Chronic diastolic dysfunction: 03/02/2017 TTE with EF 55% and diastolic dysfunction. CXR with possible early CHF. BNP 618; with some lower extremity edema. Evaluated by cardiology who recommended Lasix 20 mg daily. Repeat echo pending 5. Hypertension: per hx. BP variable and has been soft/borderline with home BB and adding CCB for rate control. Add BP, heart rate parameters. Home losartan stopped. Monitor BP and titrate PRN 6. CAD: per hx. asymptomatic, denies chest pain. Troponin peaked at 0.05. Evaluated by cardiology who noted likely demand ischemia secondary to COPD exacerbation. Troponin trended down. Continue ASA medical management. 7. DVT prophylaxis: Xarelto (2) Atrial flutter Current Visit: Yes Status: Acute Qualifiers: Atrial flutter type: unspecified Qualified Code(s): I48.92 - Unspecified atrial flutter (3) CAD (coronary artery disease) Current Visit: No Status: Chronic Qualifiers: Coronary Disease-Associated Artery/Lesion type: [place] artery [place] vs. transplanted heart: [place] heart Associated angina: with unspecified angina Qualified Code(s): I25.119 - Atherosclerotic heart disease of [place] coronary artery with unspecified angina pectoris (4) Hypertension Current Visit: No Status: Chronic Qualifiers: Hypertension type: essential hypertension Qualified Code(s): I10 - Essential (primary) hypertension (5) DVT prophylaxis Current Visit: No Status: Acute - Subjective Interval history: Seen and examined at bedside; patient says he had a rough night is not breathing well this morning. Feels more short of breath. No chest pain. Has nonproductive cough. - Constitutional Vitals: Temp Pulse Resp BP Pulse Ox 97.6 F 75 16 132/77 99 03/03/17 06:40 03/03/17 06:40 03/03/17 08:34 03/03/17 08:28 03/03/17 08:34 General appearance: Present: mild distress, A&O X 3 - Respiratory Respiratory exam: Present: rhonchi, wheezes Internal Medicine: Result - Labs CBC & Chem 7: 03/03/17 03:15 03/03/17 03:15 Labs: Short CBC 03/03/17 Range/Units 03:15 WBC 14.1 H (4.3-11.1) K/mcL Hgb 13.5 (12.9-16.9) g/dL Hct 43.2 (37.5-50.1) % Plt Count 159 (140-400) K/mcL Neutrophils # 12.3 H (1.6-8.9) K/mcL BMP 03/03/17 03:15 Sodium 139 Potassium 4.3 Chloride 104 Carbon Dioxide 27 BUN 28 H Creatinine 1.04 Glucose 219 H Calcium 8.7 Liver Function 03/03/17 Range/Units 03:15 Total Bilirubin 0.4 (0.2-1.2) mg/dL AST 12 (5-34) Units/L ALT 18 (0-55) Units/L Alkaline Phosphatase 66 (38-126) Units/L Albumin 3.2 L (3.5-5.0) g/dL Urine 03/02/17 Range/Units 20:34 Urine Color Yellow (Yellow) Urine Clarity Clear (Clear) Urine pH 6.0 (5.0-8.0) pH Units Ur Specific [place] 1.019 (1.010-1.025) Urine Protein Negative (Neg-Trace) mg/dL Urine Glucose (UA) Normal (Normal) mg/dL Consult Discharge Plan - Plan Referrals: Eleni Pope MD [Primary Care Provider] -
[2017-03-03] MEDS: Azithromycin 500 MG in D5% in Water 250 ML IVPB SCH (13:20)
[2017-03-03] MEDS: Insulin LISPRO 300 UNITS/3 ML VIAL SQ SCH ×2 (13:21→17:09)
[2017-03-03] MEDS: *HR* Rivaroxaban 15 MG TABLET PO SCH (16:35)
--- NOTE | 2017-03-03 18:43 | Electrocardiograph Report ---
[place] [id number] Test Date: 2017-03-01 Pat Name: Shiv Olivarez Department: 104 Room: 3B13 Gender: M Vocal Artist: WILLI : 1940 Requested By: Sujatha See Order Number: [id number] Reading MD: Braeden Matos MD Measurements Intervals [place] Rate: 101 P: 256 WI: 218 QRS: 69 QRSD: 97 T: 19 QT: 371 QTc: 429 Interpretive Statements ATRIAL FLUTTER WITH 2:1 CONDUCTION BASELINE ARTIFACT Electronically Signed On 03-03-2017 18:42:15 EDT by Braeden Matos MD
[2017-03-03] MEDS ORDERED: MethylPREDNISolone 40 MG/ML VIAL IVP SCH (20:00)
[2017-03-03] MEDS ORDERED: Insulin LISPRO 300 UNITS/3 ML VIAL SQ SCH (21:00)
[2017-03-04 04:13] LABS: Hematocrit 41.8 % (37.5-50.1); Hemoglobin 13.1 g/dL (12.9-16.9); Immature Granulocytes % 0.7 % (0-4); Lymphocytes # 0.6 K/mcL (0.6-4.6); Mean Corpuscular HGB Conc 31.3 g/dL (31.6-35.5); Mean Corpuscular Hemoglobin 29.4 pg (28.0-33.3); Mean Corpuscular Volume 93.9 fL (83.0-100.0); Mean Platelet Volume 11.1 fL (9.4-12.4); Monocytes # 0.3 K/mcL (0.0-1.3); Monocytes % 3.3 %; Platelet Count 139 K/mcL (140-400); Red Blood Count 4.45 M/mcL (4.19-5.50); Red Cell Distribution Width 14.6 % (11.5-14.5)
[2017-03-04 04:18] LABS: Alanine Aminotransferase 19 Units/L (0-55); Albumin/Globulin Ratio 1.1 (1.1-2.2); Alkaline Phosphatase 55 Units/L (38-126); Aspartate Amino Transferase 14 Units/L (5-34); BUN/Creatinine Ratio 26 (6-26); Bilirubin,Total 0.5 mg/dL (0.2-1.2); Blood Urea Nitrogen 25 mg/dL (8-26); Calcium 8.5 mg/dL (8.6-10.8); Carbon Dioxide 26 mEq/L (19-29); Chloride 105 mEq/L (98-109); Globulin 2.8 g/dL (2.4-3.5); Glucose 144 mg/dL (70-99); Osmolality,Calculated 293 (280-300); Potassium 4.7 mEq/L (3.5-4.5); Sodium 138 mEq/L (136-145); Total Protein 5.8 g/dL (6.0-8.3); eGFR For African Americans > 60 (> 60); eGFR For Non-African Americans > 60 (> 60)
[2017-03-04] MEDS: MethylPREDNISolone 40 MG/ML VIAL IVP SCH ×2 (05:42→12:33)
[2017-03-04] MEDS: Diltiazem CD (24hr) 120 MG CAPSULE PO SCH (09:45)
[2017-03-04] MEDS: Famotidine 20 MG TABLET PO SCH (09:46)
[2017-03-04] MEDS: Aspirin Enteric Coated 81 MG Tablet PO SCH (09:46)
[2017-03-04] MEDS: Isosorbide MONOnitrate (24 HR) 60 MG TAB.ER.24H PO SCH (09:46)
[2017-03-04] MEDS: Ranolazine 500 MG TAB.ER.12H PO SCH (09:46)
[2017-03-04] MEDS: Furosemide 20 MG/2 ML VIAL IVP SCH (09:47)
[2017-03-04] MEDS: Magnesium Oxide 400 MG TABLET PO SCH (09:47)
[2017-03-04] MEDS: Insulin LISPRO 300 UNITS/3 ML VIAL SQ SCH ×2 (10:07→12:48)
[2017-03-04] MEDS: Ipratropium/Albuterol Neb 3 ML IH SCH ×2 (10:39→10:40)
[2017-03-04] MEDS: Budesonide/Formoterol 160/4.5 MDI IH SCH (10:39)
--- NOTE | 2017-03-04 11:50 | Discharge Summary ---
Date of Encounter: 03/04/17 Time of Encounter: 11:50 - Discharge Diagnosis (1) Acute exacerbation of chronic obstructive airways disease Priority: Primary Status: Acute Comments: Shiv Olivarez is a 76-year-old male with PMH COPD, CAD, hypertension, and atrial flutter on Xarelto who presented to [facility] on 03/01/2017 with complaints of shortness of breath, exercise intolerance and fatigue. He was placed in observation status for further workup and treatment. He was found to be in acute COPD exacerbation as well as a flutter with RVR. His symptoms improved with IV ATB and IV steroids. Heart rate controlled with addition of CCB. He was discharged home on 03/04/2017 in stable condition. 1. Acute COPD exacerbation: known hx COPD, wears O2 at bedtime. Presented with increased SOB and diffuse wheezing on exam. Symptoms improved with IV Azithromycin, IV Rocephin, and IV steroids. Discharge home on Levaquin (for a total course of 7 days of therapy). Smoking cessation advised. Can follow-up with PCP 2. Sepsis: with tachycardia, hypotension, WBC 16 K, lactic acid 2.9 (although tachycardia multifactorial with a flutter & possible sepsis, hypotension could be related to sepsis and use of BB with addition of CCB). Chest x-ray without evidence of pneumonia, CT chest with severe emphysema, no infiltrates. Clinically appeared to be respiratory etiology with dyspnea, rhonchorous lung sounds, productive cough. Initially treated with IV Vanco, Zosyn, IV fluids. Antibiotics de-escalated to IV azithromycin, Rocephin. Lactic acid normalized. Blood cultures negative. Resolved prior to discharge. 3. Atrial flutter: per hx. follows with Dr. Rodriguez, scheduled for ablation 03/29. Admission EKG showed a flutter with heart rates in low 100s. TTE with severely dilated left atrium. Evaluated by cardiology who recommended keeping heart rate less than 110. Continue home BB, CCB added on admission. Continue Xarelto. Follow-up with Cardiology as previously planned 4. Chronic diastolic dysfunction: 03/02/2017 TTE with EF 55% and diastolic dysfunction. CXR with possible early CHF. BNP 618; with some lower extremity edema. Evaluated by cardiology who recommended Lasix 20 mg daily. 5. Hypertension: per hx. BP intermittently soft/borderline but acceptable. Home losartan stopped. Cont home BB, CCB added this admission. Recommend BP recheck with PCP within one week. 6. CAD: per hx. asymptomatic, denies chest pain. Troponin peaked at 0.05. Evaluated by cardiology who noted likely demand ischemia secondary to COPD exacerbation. Troponin trended down. Continue ASA medical management. Follow- up with Cardiology outpatient (2) Atrial flutter Priority: Primary Status: Acute Qualifiers: Atrial flutter type: unspecified Qualified Code(s): I48.92 - Unspecified atrial flutter (3) CAD (coronary artery disease) Priority: Primary Status: Chronic Qualifiers: Coronary Disease-Associated Artery/Lesion type: [place] artery [place] vs. transplanted heart: [place] heart Associated angina: with unspecified angina Qualified Code(s): I25.119 - Atherosclerotic heart disease of [place] coronary artery with unspecified angina pectoris (4) Hypertension Priority: Primary Status: Chronic Qualifiers: Hypertension type: essential hypertension Qualified Code(s): I10 - Essential (primary) hypertension - Discharge Medications Prescriptions: Diltiazem CD (24hr) [Cardizem CD] 120 mg PO DAILY #30 cap.er.24h Furosemide [Lasix] 20 mg PO DAILY #30 tablet Levofloxacin [Levaquin] 750 mg PO DAILY #2 tablet predniSONE [PredniSONE] 40 mg PO DAILY #8 tablet Home Medications: Cholecalciferol (D-3) [Vitamin D] 2,000 unit PO DAILY 02/05/17 [History] Isosorbide MONOnitrate (24 HR) [Imdur] 60 mg PO DAILY 02/05/17 [History] Magnesium Oxide [Mag-Ox] 400 mg PO DAILY 02/05/17 [History] Omeprazole [PriLOSEC] 40 mg PO DAILY 02/05/17 [History] Ranitidine HCl [Zantac] 150 mg PO BID 02/05/17 [History] Ranolazine [Ranexa] 500 mg PO BID 02/05/17 [History] Rosuvastatin [Crestor] 40 mg PO HS 02/05/17 [History] Albuterol Sulfate [Albuterol Inhaler] 1 puff IH Q6HR PRN #1 inhaler 02/07/17 [Rx ] Aspirin Enteric Coated [Aspirin EC] 81 mg PO DAILY #30 unit 02/07/17 [Rx] Budesonide/Formoterol 160/4.5 [Symbicort 160/4.5] 2 puff IH BIDR #1 hfa.aer.ad 02/07/17 [Rx] Metoprolol [Lopressor] 50 mg PO BID #30 02/07/17 [Rx] Rivaroxaban [Xarelto] 20 mg PO 1700 #0 tab 02/07/17 [Rx] Fluticasone Propionate Nasal [Flonase] 50 mcg NS BID 03/01/17 [History] Diltiazem CD (24hr) [Cardizem CD] 120 mg PO DAILY #30 cap.er.24h 03/04/17 [Rx] Furosemide [Lasix] 20 mg PO DAILY #30 tablet 03/04/17 [Rx] Levofloxacin [Levaquin] 750 mg PO DAILY #2 tablet 03/04/17 [Rx] predniSONE [PredniSONE] 40 mg PO DAILY #8 tablet 03/04/17 [Rx] Allergies/Adverse Reactions: 3 Allergy/AdvReac Type Severity Reaction Status Date / Time No Known Allergies Allergy Verified 12/21/15 09:43 Date of admission: 03/02/17 11:44 Primary care physician: Eleni Pope Discharging clinician: Dionne Rodriguez Anticipated date of discharge: 03/04/17 - Patient Status Disposition: Home, Self-Care Condition: Good Functional capacity at discharge: independent ambulation Overall status at discharge: patient is progressing back to baseline - Discharge Instructions Follow Up With: Eleni Pope MD [Primary Care Provider] - - Diet and Activity Activity: resume usual activities as tolerated Diet: advance to your usual diet Interval History: Seen and examined at bedside, patient initially said he was not breathing well this morning, but then improves as the day went on. Says he is feeling back to baseline and would like to go home today. Has some shortness of breath but overall improved. Denies chest pain. Hospital course: See assessment and plan for hospital course - Time Spent with Patient Total time spent providing and/or coordinating discharge services: Greater than 30 minutes (46 minutes spent on discharge) - Constitutional Vitals: Temp Pulse Resp BP Pulse Ox 97.8 F 97 18 145/95 96 03/04/17 07:54 03/04/17 07:54 03/04/17 07:54 03/04/17 07:54 03/04/17 07:54 General appearance: Present: A&O X 3 - Head Head exam: Present: atraumatic, normocephalic - Eye Eye exam: Present: PERRL, conjuntiva pink, sclera anicteric Pupils: Present: PERRL - Neck Neck exam general surgery: Present: supple, trachea midline. Absent: lymphadenopathy - Respiratory Respiratory exam: Present: CTAB. Absent: accessory muscle use, rales, rhonchi, wheezes Additional comments: scant, scattered wheezing - Cardiovascular Cardiovascular exam: Present: RRR, +S1, +S2. Absent: diastolic murmur, gallop, rubs, systolic murmur - GI/Abdominal GI/Abdominal exam: Present: normal bowel sounds, soft, no peritoneal signs. Absent: distended, tenderness - Extremities Exam Extremities exam: Present: warm, radial pulses palpable and symmetrical. Absent : calf tenderness, cyanotic, pedal edema - Neurological Exam Neurological exam: Present: CN II-XII intact, oriented X3, no focal deficits. Absent: pronater drift, facial droop, speech deficit - Skin Skin exam: Present: dry, intact
[2017-03-04 12:06] VITALS: BP 132/86
[2017-03-04] MEDS: Azithromycin 500 MG in D5% in Water 250 ML IVPB SCH (12:33)
--- NOTE | 2017-03-04 12:39 | Discharge Summary ---
Date of Encounter: 03/04/17 Time of Encounter: 12:37 - Discharge Diagnosis (1) Acute exacerbation of chronic obstructive airways disease Priority: Primary Status: Acute Comments: Shiv Olivarez is a 76-year-old male with PMH COPD, CAD, hypertension, and atrial flutter on Xarelto who presented to [facility] on 03/01/2017 with complaints of shortness of breath, exercise intolerance and fatigue. He was placed in observation status for further workup and treatment. He was found to be in acute COPD exacerbation as well as a flutter with RVR. His symptoms improved with IV ATB and IV steroids. Heart rate controlled with addition of CCB. He was discharged home on 03/04/2017 in stable condition. 1. Acute COPD exacerbation: known hx COPD, wears O2 at bedtime. Presented with increased SOB and diffuse wheezing on exam. Symptoms improved with IV Azithromycin, IV Rocephin, and IV steroids. Discharge home on Levaquin (for a total course of 7 days of therapy). Smoking cessation advised. Can follow-up with PCP 2. Sepsis: with tachycardia, hypotension, WBC 16 K, lactic acid 2.9 (although tachycardia multifactorial with a flutter & possible sepsis, hypotension could be related to sepsis and use of BB with addition of CCB). Chest x-ray without evidence of pneumonia, CT chest with severe emphysema, no infiltrates. Clinically appeared to be respiratory etiology with dyspnea, rhonchorous lung sounds, productive cough. Initially treated with IV Vanco, Zosyn, IV fluids. Antibiotics de-escalated to IV azithromycin, Rocephin. Lactic acid normalized. Blood cultures negative. Resolved prior to discharge. 3. Atrial flutter: per hx. follows with Dr. Rodriguez, scheduled for ablation 03/29. Admission EKG showed a flutter with heart rates in low 100s. TTE with severely dilated left atrium. Evaluated by cardiology who recommended keeping heart rate less than 110. Continue home BB, CCB added on admission. Continue Xarelto. Follow-up with Cardiology as previously planned 4. Chronic diastolic dysfunction: 03/02/2017 TTE with EF 55% and diastolic dysfunction. CXR with possible early CHF. BNP 618; with some lower extremity edema. Evaluated by cardiology who recommended Lasix 20 mg daily. 5. Hypertension: per hx. BP intermittently soft/borderline but acceptable. Cont home BB, CCB added this admission. Recommend BP recheck with PCP within one week. 6. CAD: per hx. asymptomatic, denies chest pain. Troponin peaked at 0.05. Evaluated by cardiology who noted likely demand ischemia secondary to COPD exacerbation. Troponin trended down. Continue ASA, BB, statin, nitrate, Ranexa. Follow-up with Cardiology outpatient (2) Atrial flutter Priority: Primary Status: Acute Qualifiers: Atrial flutter type: unspecified Qualified Code(s): I48.92 - Unspecified atrial flutter (3) CAD (coronary artery disease) Priority: Primary Status: Chronic Qualifiers: Coronary Disease-Associated Artery/Lesion type: [place] artery [place] vs. transplanted heart: [place] heart Associated angina: with unspecified angina Qualified Code(s): I25.119 - Atherosclerotic heart disease of [place] coronary artery with unspecified angina pectoris (4) Hypertension Priority: Primary Status: Chronic Qualifiers: Hypertension type: essential hypertension Qualified Code(s): I10 - Essential (primary) hypertension - Discharge Medications Prescriptions: Diltiazem CD (24hr) [Cardizem CD] 120 mg PO DAILY #30 cap.er.24h Furosemide [Lasix] 20 mg PO DAILY #30 tablet Levofloxacin [Levaquin] 750 mg PO DAILY #2 tablet predniSONE [PredniSONE] 40 mg PO DAILY #8 tablet Home Medications: Cholecalciferol (D-3) [Vitamin D] 2,000 unit PO DAILY 02/05/17 [History] Isosorbide MONOnitrate (24 HR) [Imdur] 60 mg PO DAILY 02/05/17 [History] Magnesium Oxide [Mag-Ox] 400 mg PO DAILY 02/05/17 [History] Omeprazole [PriLOSEC] 40 mg PO DAILY 02/05/17 [History] Ranitidine HCl [Zantac] 150 mg PO BID 02/05/17 [History] Ranolazine [Ranexa] 500 mg PO BID 02/05/17 [History] Rosuvastatin [Crestor] 40 mg PO HS 02/05/17 [History] Albuterol Sulfate [Albuterol Inhaler] 1 puff IH Q6HR PRN #1 inhaler 02/07/17 [Rx ] Aspirin Enteric Coated [Aspirin EC] 81 mg PO DAILY #30 unit 02/07/17 [Rx] Budesonide/Formoterol 160/4.5 [Symbicort 160/4.5] 2 puff IH BIDR #1 hfa.aer.ad 02/07/17 [Rx] Metoprolol [Lopressor] 50 mg PO BID #30 02/07/17 [Rx] Rivaroxaban [Xarelto] 20 mg PO 1700 #0 tab 02/07/17 [Rx] Fluticasone Propionate Nasal [Flonase] 50 mcg NS BID 03/01/17 [History] Diltiazem CD (24hr) [Cardizem CD] 120 mg PO DAILY #30 cap.er.24h 03/04/17 [Rx] Furosemide [Lasix] 20 mg PO DAILY #30 tablet 03/04/17 [Rx] Levofloxacin [Levaquin] 750 mg PO DAILY #2 tablet 03/04/17 [Rx] predniSONE [PredniSONE] 40 mg PO DAILY #8 tablet 03/04/17 [Rx] Allergies/Adverse Reactions: 3 Allergy/AdvReac Type Severity Reaction Status Date / Time No Known Allergies Allergy Verified 12/21/15 09:43 Date of admission: 03/02/17 11:44 Primary care physician: Eleni Pope Discharging clinician: Dionne Rodriguez Anticipated date of discharge: 03/04/17 - Patient Status Disposition: Home, Self-Care Condition: Good - Discharge Instructions Follow Up With: [facility] [Provider Group] Eleni Pope MD [Primary Care Provider] - 03/11/17 1:45 pm Interval History: See previous discharge summary for interval hx Hospital course: Mr. Olivarez is a 76 year old male - Time Spent with Patient Total time spent providing and/or coordinating discharge services: Greater than 30 minutes (48 minutes spent on discharge) - Constitutional Vitals: Temp Pulse Resp BP Pulse Ox 97.7 F 72 16 132/86 95 03/04/17 12:04 03/04/17 12:04 03/04/17 12:04 03/04/17 12:04 03/04/17 12:04 General appearance: Present: A&O X 3 - Head Head exam: Present: atraumatic, normocephalic - Eye Eye exam: Present: PERRL, conjuntiva pink, sclera anicteric Pupils: Present: PERRL - Neck Neck exam general surgery: Present: supple, trachea midline. Absent: lymphadenopathy - Respiratory Respiratory exam: Absent: accessory muscle use, rales, rhonchi, wheezes Additional comments: scant, scattered wheezing - Cardiovascular Cardiovascular exam: Present: RRR, +S1, +S2. Absent: diastolic murmur, gallop, rubs, systolic murmur - GI/Abdominal GI/Abdominal exam: Present: normal bowel sounds, soft, no peritoneal signs. Absent: distended, tenderness - Extremities Exam Extremities exam: Present: warm, radial pulses palpable and symmetrical. Absent : calf tenderness, cyanotic, pedal edema - Neurological Exam Neurological exam: Present: CN II-XII intact, oriented X3, no focal deficits. Absent: pronater drift, facial droop, speech deficit - Skin Skin exam: Present: dry, intact
[2017-03-04] MEDS ORDERED: *HR* Rivaroxaban 10 MG TABLET PO SCH (17:00)
[2017-03-05 19:16] LABS: CK-MB (CK isoenzymes) 0 % (0-4); CK-MM (CK-isoenzymes) 100 % (96-100)
[2017-03-05 19:16] LABS: CK-MB (CK isoenzymes) 0 % (0-4); CK-MM (CK-isoenzymes) 100 % (96-100)
[2017-03-06 15:32] LABS: CK Total (Ck Isoenzymes) 41 U/L (20-200); CK-BB (CK isoenzymes) 0 % (0-0)
[2017-03-06 15:32] LABS: CK Total (Ck Isoenzymes) 39 U/L (20-200); CK-BB (CK isoenzymes) 0 % (0-0)
== END 2017-03-04 15:37 | disposition home or self-care (01) ==
LOC: 3BNU 01:50 → EMEROO 01:50 → 3BNU 05:10
PROVIDERS: ADMIT Pediatrics; ATTEND Registered Nurse

== ENCOUNTER 2020-06-05 10:45 | Observation (INO) ==
[2020-06-05 11:48] LABS: Basophils # 0.1 K/mcL (0.0-0.2); Basophils % 0.8 %; Eosinophils # 0.3 K/mcL (0.0-0.6); Eosinophils % 4.8 %; Hematocrit 52.7 % (37.5-50.1); Hemoglobin 15.9 g/dL (12.9-16.9); Immature Granulocytes % 0.3 % (0-4); Lymphocytes % 15.2 %; Mean Corpuscular HGB Conc 30.2 g/dL (31.6-35.5); Mean Corpuscular Hemoglobin 27.8 pg (28.0-33.3); Mean Corpuscular Volume 92.3 fL (83.0-100.0); Mean Platelet Volume 10.4 fL (9.4-12.4); Monocytes # 0.5 K/mcL (0.0-1.3); Monocytes % 8.2 %; Neutrophils # 4.5 K/mcL (1.6-8.9); Platelet Count 215 K/mcL (140-400); Red Blood Count 5.71 M/mcL (4.19-5.50); Red Cell Distribution Width 14.6 % (11.5-14.5); Segmented Neutrophils % 70.7 %; White Blood Count 6.3 K/mcL (4.3-11.1)
[2020-06-05 12:05] LABS: Alanine Aminotransferase 10 Units/L (7-52); Albumin/Globulin Ratio 1.3 (1.1-2.2); Alkaline Phosphatase 75 Units/L (34-104); Aspartate Amino Transferase 12 Units/L (13-39); BUN/Creatinine Ratio 16 (6-26); Bilirubin,Total 0.8 mg/dL (0.3-1.0); Blood Urea Nitrogen 16 mg/dL (8-23); Calcium 9.6 mg/dL (8.6-10.3); Carbon Dioxide 34 mEq/L (23-29); Chloride 96 mEq/L (98-107); Globulin 3.2 g/dL (2.4-3.5); Glucose 120 mg/dL (70-105); Osmolality,Calculated 286 (280-300); Potassium 4.8 mEq/L (3.5-5.1); Sodium 137 mEq/L (136-145); Total Protein 7.2 g/dL (6.4-8.9); Troponin I < 0.03 ng/mL (< 0.04); eGFR For African Americans > 60 (> 60); eGFR For Non-African Americans > 60 (> 60)
[2020-06-05] MEDS ORDERED: methylPREDNISolone 125 MG/2 ML VIAL IVP ONE (12:06)
[2020-06-05] MEDS ORDERED: Perflutren Lipid Microsphere 1.3 ML in 0.9 % Sodium Chloride 8.7 ML IVP PRN (13:11)
[2020-06-05] MEDS ORDERED: IPRATROPIUM BROMIDE NS PRN (13:20)
[2020-06-05] MEDS ORDERED: Ondansetron 4 MG/2 ML VIAL IVP PRN (13:24)
[2020-06-05] MEDS ORDERED: Naloxone 0.4 MG/ML INJ IVP PRN (13:24)
[2020-06-05] MEDS ORDERED: Acetaminophen 325 MG TABLET PO PRN (13:24)
[2020-06-05] MEDS ORDERED: Nicotine 14 MG PATCH.TD24 TD SCH (13:30)
[2020-06-05] MEDS: Magnesium Oxide 400 MG TABLET PO SCH (14:42)
[2020-06-05] MEDS: Isosorbide MONOnitrate (24 HR) 60 MG TAB.ER.24H PO SCH (14:42)
[2020-06-05] MEDS: Azithromycin 250 MG TABLET PO SCH (14:42)
[2020-06-05] MEDS: Aspirin Enteric Coated 81 MG Tablet PO SCH (14:44)
[2020-06-05] MEDS: Ipratropium Neb 0.5 MG NEBULIZER IH SCH ×3 (16:32→23:29)
[2020-06-05] MEDS: Albuterol 2.5 MG/3 ML NEBULIZER IH PRN (16:32)
[2020-06-05] MEDS ORDERED: *HR* Rivaroxaban 10 MG TABLET PO SCH (17:00)
[2020-06-05] MEDS: Ranolazine 500 MG TAB.ER.12H PO SCH (20:40)
[2020-06-06] MEDS: Ipratropium Neb 0.5 MG NEBULIZER IH SCH ×3 (03:31→11:22)
[2020-06-06 05:34] LABS: Hematocrit 48.3 % (37.5-50.1); Hemoglobin 15.1 g/dL (12.9-16.9); Mean Corpuscular HGB Conc 31.3 g/dL (31.6-35.5); Mean Corpuscular Hemoglobin 28.5 pg (28.0-33.3); Mean Corpuscular Volume 91.1 fL (83.0-100.0); Mean Platelet Volume 10.7 fL (9.4-12.4); Platelet Count 220 K/mcL (140-400); Red Cell Distribution Width 14.6 % (11.5-14.5)
[2020-06-06 05:53] LABS: BUN/Creatinine Ratio 28 (6-26); Blood Urea Nitrogen 29 mg/dL (8-23); Calcium 9.3 mg/dL (8.6-10.3); Carbon Dioxide 28 mEq/L (23-29); Chloride 100 mEq/L (98-107); Glucose 144 mg/dL (70-105); Osmolality,Calculated 288 (280-300); Potassium 5.2 mEq/L (3.5-5.1); Sodium 135 mEq/L (136-145); eGFR For African Americans > 60 (> 60); eGFR For Non-African Americans > 60 (> 60)
[2020-06-06] MEDS: Aspirin Enteric Coated 81 MG Tablet PO SCH (08:51)
[2020-06-06] MEDS: Isosorbide MONOnitrate (24 HR) 60 MG TAB.ER.24H PO SCH (08:52)
[2020-06-06] MEDS: Ranolazine 500 MG TAB.ER.12H PO SCH (08:52)
[2020-06-06] MEDS: Magnesium Oxide 400 MG TABLET PO SCH (08:52)
[2020-06-06] MEDS: Azithromycin 250 MG TABLET PO SCH (08:52)
[2020-06-06] MEDS ORDERED: Magnesium Oxide 400 MG TABLET PO SCH (09:00)
[2020-06-06] MEDS ORDERED: Aspirin Enteric Coated 81 MG Tablet PO SCH (09:00)
[2020-06-06] MEDS ORDERED: Isosorbide MONOnitrate (24 HR) 60 MG TAB.ER.24H PO SCH (09:00)
[2020-06-06] MEDS ORDERED: predniSONE 20 MG TABLET PO SCH (09:00)
[2020-06-06] MEDS ORDERED: Cyanocobalamin (B-12) 1,000 MCG TABLET PO SCH (09:15)
[2020-06-06] MEDS ORDERED: NON-FORMULARY MEDICATION 1 EACH EACH (Atorvastatin Calcium [Lipitor] 80 MG) PO SCH (09:15)
[2020-06-06 10:56] VITALS: BP 153/75
[2020-06-06] MEDS: Albuterol 2.5 MG/3 ML NEBULIZER IH PRN (11:22)
== END 2020-06-06 12:05 | disposition home or self-care (01) ==
LOC: 3BNU 10:45 → EMEROOARM 10:45 → SUATTDRO 12:48 → 3BNU 13:32
PROVIDERS: ADMIT Internal Medicine; ATTEND Internal Medicine

== ENCOUNTER 2021-05-30 10:50 | Inpatient (IN) ==
[2021-05-30] MEDS ORDERED: cefTRIAXone 1,000 MG in 0.9 % Sodium Chloride Mini Bag 100 ML IVPB ONE (11:13)
[2021-05-30] MEDS ORDERED: 0.9 % Sodium Chloride 1,000 ML IVC ONE (11:13)
[2021-05-30] MEDS ORDERED: Azithromycin 500 MG in 0.9 % Sodium Chloride 250 ML IVPB ONE (11:13)
[2021-05-30] MEDS ORDERED: Ipratropium/Albuterol Neb 3 ML IH ONE (11:15)
[2021-05-30 11:30] LABS: ABG Base Excess -1 mEq/L (-2 to 3); ABG HCO3 23 mEq/L (21-27); ABG Oxygen Saturation 99 % (95-98); ABG PCO2 37 mmHg (35-45); ABG PH 7.41 pH Units (7.32-7.45); ABG PO2 121 mmHg (85-104); ABG TCO2 25 mEq/L (20-26)
[2021-05-30 11:36] LABS: Basophils # 0.1 K/mcL (0.0-0.2); Basophils % 0.4 %; Eosinophils # 0.2 K/mcL (0.0-0.6); Eosinophils % 1.4 %; Hematocrit 54.2 % (37.5-50.1); Hemoglobin 17.1 g/dL (12.9-16.9); Immature Granulocytes % 1.4 % (0-4); Lymphocytes # 0.4 K/mcL (0.6-4.6); Lymphocytes % 2.8 %; Mean Corpuscular HGB Conc 31.5 g/dL (31.6-35.5); Mean Corpuscular Hemoglobin 27.9 pg (28.0-33.3); Mean Corpuscular Volume 88.6 fL (83.0-100.0); Mean Platelet Volume 11.1 fL (9.4-12.4); Monocytes % 6.2 %; Neutrophils # 13.5 K/mcL (1.6-8.9); Platelet Count 242 K/mcL (140-400); Red Blood Count 6.12 M/mcL (4.19-5.50); Red Cell Distribution Width 15.9 % (11.5-14.5); Segmented Neutrophils % 87.8 %; White Blood Count 15.4 K/mcL (4.3-11.1)
[2021-05-30 11:45] LABS: INR 1.4; Prothrombin Time 15.1 Seconds (9.4-12.1)
[2021-05-30 11:47] LABS: Activated Partial Thrombo Time 33.8 Seconds (26.0-36.0)
[2021-05-30 12:07] LABS: Albumin 4.1 g/dL (3.5-5.7); Albumin/Globulin Ratio 1.2 (1.1-2.2); Bilirubin,Direct 0.3 mg/dL (0.0-0.2); Bilirubin,Indirect 0.9 mg/dL (0.0-1.0); Bilirubin,Total 1.2 mg/dL (0.3-1.0); Calcium 9.6 mg/dL (8.6-10.3); Globulin 3.3 g/dL (2.4-3.5); Potassium 3.6 mEq/L (3.5-5.1); Total Protein 7.4 g/dL (6.4-8.9); Troponin I 0.11 ng/mL (< 0.04)
[2021-05-30] MEDS ORDERED: Aspirin 325 MG TABLET PO ONE (12:09)
[2021-05-30 12:31] LABS: Adenovirus Not Detected (Not Detect); Bordetella Pertussis Not Detected (Not Detect); Chlamydophila pneumoniae Not Detected (Not Detect); Coronavirus 229E Not Detected (Not Detect); Coronavirus HKU1 Not Detected (Not Detect); Coronavirus NL63 Not Detected (Not Detect); Coronavirus OC43 Not Detected (Not Detect); Human Metapneumovirus DETECTED (Not Detect); Human Rhinovirus/Enterovirus Not Detected (Not Detect); Influenza A Subtype 2009 H1 Not Detected (Not Detect); Influenza B Not Detected (Not Detect); Mycoplasma pneumoniae Not Detected (Not Detect); Parainfluenza Virus 1 Not Detected (Not Detect); Parainfluenza Virus 2 Not Detected (Not Detect); Parainfluenza Virus 3 Not Detected (Not Detect); Parainfluenza Virus 4 Not Detected (Not Detect); Respiratory Syncytial Virus Not Detected (Not Detect); SARS-CoV-2 Not Detected (Not Detect)
[2021-05-30] MEDS ORDERED: Isovue-370 500 ML BOTTLE IVP ONE ×2 (12:46→12:49)
[2021-05-30] MEDS ORDERED: 0.9 % Sodium Chloride 1,000 ML IV ONE (12:49)
[2021-05-30] MEDS ORDERED: Famotidine 20 MG/2 ML VIAL IVP ONE (13:52)
[2021-05-30] MEDS ORDERED: Ondansetron 4 MG/2 ML VIAL IVP PRN (13:52)
[2021-05-30] MEDS ORDERED: Naloxone 0.4 MG/ML INJ IVP PRN (14:55)
[2021-05-30] MEDS ORDERED: Ipratropium/Albuterol Neb 3 ML IH PRN (18:54)
[2021-05-30] MEDS: Budesonide/Glycopyr/Formoterol [Breztri Aerosphere] IH SCH (20:49)
[2021-05-31] MEDS: MethylPREDNISolone 40 MG/ML VIAL IVP SCH ×4 (00:03→23:44)
[2021-05-31 01:34] LABS: Basophils % 0.1 %; Hematocrit 45.6 % (37.5-50.1); Immature Granulocytes % 0.9 % (0-4); Lymphocytes # 0.3 K/mcL (0.6-4.6); Lymphocytes % 3.4 %; Mean Corpuscular HGB Conc 31.1 g/dL (31.6-35.5); Mean Corpuscular Hemoglobin 27.7 pg (28.0-33.3); Mean Corpuscular Volume 88.9 fL (83.0-100.0); Mean Platelet Volume 10.8 fL (9.4-12.4); Monocytes # 0.4 K/mcL (0.0-1.3); Monocytes % 3.6 %; Neutrophils # 9.1 K/mcL (1.6-8.9); Platelet Count 186 K/mcL (140-400); Red Blood Count 5.13 M/mcL (4.19-5.50); Red Cell Distribution Width 15.8 % (11.5-14.5); White Blood Count 9.9 K/mcL (4.3-11.1)
[2021-05-31 01:36] LABS: Hemoglobin 14.2 g/dL (12.9-16.9)
[2021-05-31 01:53] LABS: BUN/Creatinine Ratio 29 (6-26); Blood Urea Nitrogen 28 mg/dL (8-23); Calcium 8.7 mg/dL (8.6-10.3); Carbon Dioxide 23 mEq/L (23-29); Chloride 105 mEq/L (98-107); Glucose 123 mg/dL (70-105); Osmolality,Calculated 291 (280-300); Potassium 4.2 mEq/L (3.5-5.1); Sodium 137 mEq/L (136-145); eGFR For African Americans > 60 (> 60); eGFR For Non-African Americans > 60 (> 60)
[2021-05-31] MEDS: Isosorbide MONOnitrate (24 HR) 60 MG TAB.ER.24H PO SCH (08:29)
[2021-05-31] MEDS: *HR* Acetylcysteine 20% 600 MG/3 ML ORAL SYRINGE PO SCH (08:29)
[2021-05-31] MEDS: Ranolazine 500 MG TAB.ER.12H PO SCH (08:29)
[2021-05-31] MEDS: Budesonide/Glycopyr/Formoterol [Breztri Aerosphere] IH SCH (08:30)
[2021-05-31] MEDS ORDERED: Water for inj. (sterile) 10 ML ONE (10:15)
[2021-05-31] MEDS: Azithromycin 500 MG in 0.9 % Sodium Chloride 250 ML IVPB SCH (10:17)
[2021-05-31] MEDS: cefTRIAXone 1,000 MG in 0.9 % Sodium Chloride Mini Bag 100 ML IVP SCH (10:17)
[2021-05-31] MEDS: Ipratropium Neb 0.5 MG NEBULIZER IH SCH ×4 (11:07→20:36)
[2021-05-31] MEDS: Levalbuterol Neb 1.25 MG/3 ML IH SCH ×3 (11:54→20:36)
[2021-05-31] MEDS ORDERED: Ipratropium/Albuterol Neb 3 ML IH SCH (12:00)
[2021-05-31 12:15] LABS: VBG HCO3 27 mEq/L (21-27); VBG PCO2 54 mmHg (41-51); VBG PO2 62 mmHg (25-50)
[2021-05-31] MEDS ORDERED: Levalbuterol Neb 1.25 MG/3 ML IH SCH (16:00)
[2021-05-31] MEDS ORDERED: Haloperidol Lactate 5 MG/ML VIAL IM ONE (16:19)
[2021-05-31] MEDS ORDERED: Haloperidol Lactate 5 MG/ML VIAL IM PRN (16:35)
[2021-05-31] MEDS ORDERED: *HR* Rivaroxaban 10 MG TABLET PO SCH (17:00)
[2021-05-31 17:01] LABS: ABG Base Excess -1 mEq/L (-2 to 3); ABG HCO3 25 mEq/L (21-27); ABG Oxygen Saturation 97 % (95-98); ABG PCO2 46 mmHg (35-45); ABG PH 7.35 pH Units (7.32-7.45); ABG PO2 94 mmHg (85-104); ABG TCO2 27 mEq/L (20-26)
[2021-05-31] MEDS ORDERED: QUEtiapine Fumarate 25 MG TABLET PO SCH (21:00)
[2021-05-31] MEDS ORDERED: Haloperidol Lactate 5 MG/ML VIAL IVP ONE (23:31)
[2021-05-31] MEDS ORDERED: Ipratropium/Albuterol Neb 3 ML IH ONE (23:53)
[2021-05-31] MEDS ORDERED: Furosemide 20 MG/2 ML VIAL IVP ONE (23:54)
[2021-06-01] MEDS ORDERED: Ziprasidone 10 MG, Closed System Device IM Kit 1 EACH in Water for inj. (sterile) 0.5 ML IM ONE (00:15)
[2021-06-01] MEDS ORDERED: diazePAM 10 MG/2 ML SYRINGE IVP ONE (02:28)
[2021-06-01] MEDS: Ipratropium Neb 0.5 MG NEBULIZER IH SCH ×5 (03:57→23:07)
[2021-06-01] MEDS: Levalbuterol Neb 1.25 MG/3 ML IH SCH ×5 (03:57→23:07)
[2021-06-01] MEDS: Isosorbide MONOnitrate (24 HR) 60 MG TAB.ER.24H PO SCH (08:09)
[2021-06-01] MEDS: Ranolazine 500 MG TAB.ER.12H PO SCH (08:09)
[2021-06-01] MEDS: predniSONE 20 MG TABLET PO SCH ×2 (08:10→08:46)
[2021-06-01] MEDS: cefTRIAXone 1,000 MG in 0.9 % Sodium Chloride Mini Bag 100 ML IVP SCH (08:10)
[2021-06-01] MEDS: *HR* Acetylcysteine 20% 600 MG/3 ML ORAL SYRINGE PO SCH (08:10)
[2021-06-01 08:28] LABS: Basophils % 0.1 %; Hematocrit 43.2 % (37.5-50.1); Hemoglobin 14.2 g/dL (12.9-16.9); Immature Granulocytes % 1.7 % (0-4); Lymphocytes # 0.5 K/mcL (0.6-4.6); Lymphocytes % 4.3 %; Mean Corpuscular HGB Conc 32.9 g/dL (31.6-35.5); Mean Corpuscular Hemoglobin 28.5 pg (28.0-33.3); Mean Corpuscular Volume 86.6 fL (83.0-100.0); Mean Platelet Volume 10.7 fL (9.4-12.4); Monocytes # 0.5 K/mcL (0.0-1.3); Monocytes % 4.9 %; Neutrophils # 9.7 K/mcL (1.6-8.9); Platelet Count 190 K/mcL (140-400); Red Blood Count 4.99 M/mcL (4.19-5.50); Red Cell Distribution Width 15.9 % (11.5-14.5); White Blood Count 10.9 K/mcL (4.3-11.1)
[2021-06-01] MEDS: Azithromycin 500 MG in 0.9 % Sodium Chloride 250 ML IVPB SCH (11:07)
[2021-06-01 11:18] LABS: Calcium 9.5 mg/dL (8.6-10.3); Potassium 4.5 mEq/L (3.5-5.1)
[2021-06-01] MEDS ORDERED: *HR* Metoprolol 5 MG/5 ML VIAL IVP PRN (15:50)
[2021-06-01] MEDS ORDERED: MethylPREDNISolone 40 MG/ML VIAL IVP SCH (16:00)
[2021-06-01] MEDS: MethylPREDNISolone 40 MG/ML VIAL IVP SCH (18:17)
[2021-06-01] MEDS: *HR* Rivaroxaban 15 MG TABLET PO SCH (18:17)
[2021-06-01] MEDS: QUEtiapine Fumarate 25 MG TABLET PO SCH (21:35)
[2021-06-02] MEDS ORDERED: diazePAM 10 MG/2 ML SYRINGE IVP ONE (02:11)
[2021-06-02 02:48] LABS: Basophils % 0.1 %; Hematocrit 43.4 % (37.5-50.1); Hemoglobin 13.4 g/dL (12.9-16.9); Immature Granulocytes % 0.6 % (0-4); Lymphocytes # 0.3 K/mcL (0.6-4.6); Lymphocytes % 3.1 %; Mean Corpuscular HGB Conc 30.9 g/dL (31.6-35.5); Mean Corpuscular Volume 90.8 fL (83.0-100.0); Mean Platelet Volume 10.5 fL (9.4-12.4); Monocytes # 0.4 K/mcL (0.0-1.3); Monocytes % 4.3 %; Neutrophils # 8.1 K/mcL (1.6-8.9); Platelet Count 197 K/mcL (140-400); Red Blood Count 4.78 M/mcL (4.19-5.50); Red Cell Distribution Width 16.1 % (11.5-14.5); Segmented Neutrophils % 91.9 %; White Blood Count 8.8 K/mcL (4.3-11.1)
[2021-06-02 03:08] LABS: Calcium 9.5 mg/dL (8.6-10.3)
[2021-06-02] MEDS: Levalbuterol Neb 1.25 MG/3 ML IH PRN (03:09)
[2021-06-02] MEDS: Ipratropium Neb 0.5 MG NEBULIZER IH SCH ×4 (04:10→21:01)
[2021-06-02] MEDS: MethylPREDNISolone 40 MG/ML VIAL IVP SCH (05:04)
[2021-06-02] MEDS: *HR* Acetylcysteine 20% 600 MG/3 ML ORAL SYRINGE PO SCH (07:59)
[2021-06-02] MEDS: Ranolazine 500 MG TAB.ER.12H PO SCH (08:00)
[2021-06-02] MEDS: Isosorbide MONOnitrate (24 HR) 60 MG TAB.ER.24H PO SCH (08:00)
[2021-06-02] MEDS: cefTRIAXone 1,000 MG in 0.9 % Sodium Chloride Mini Bag 100 ML IVP SCH (08:01)
[2021-06-02] MEDS ORDERED: Furosemide 20 MG/2 ML VIAL IVP ONE (09:00)
[2021-06-02] MEDS: Azithromycin 500 MG in 0.9 % Sodium Chloride 250 ML IVPB SCH (10:58)
[2021-06-02] MEDS: *HR* Rivaroxaban 15 MG TABLET PO SCH (16:24)
[2021-06-02] MEDS: QUEtiapine Fumarate 25 MG TABLET PO SCH (20:16)
[2021-06-02] MEDS: Cefdinir 300 MG CAPSULE PO SCH (20:16)
[2021-06-03 03:47] LABS: Basophils % 0.2 %; Hemoglobin 13.3 g/dL (12.9-16.9); Immature Granulocytes % 0.6 % (0-4); Lymphocytes # 0.8 K/mcL (0.6-4.6); Lymphocytes % 8.2 %; Mean Corpuscular HGB Conc 30.2 g/dL (31.6-35.5); Mean Corpuscular Hemoglobin 27.5 pg (28.0-33.3); Mean Corpuscular Volume 90.9 fL (83.0-100.0); Mean Platelet Volume 10.5 fL (9.4-12.4); Monocytes # 0.7 K/mcL (0.0-1.3); Monocytes % 7.7 %; Neutrophils # 7.8 K/mcL (1.6-8.9); Platelet Count 174 K/mcL (140-400); Red Blood Count 4.84 M/mcL (4.19-5.50); Red Cell Distribution Width 16.1 % (11.5-14.5); Segmented Neutrophils % 83.3 %; White Blood Count 9.4 K/mcL (4.3-11.1)
[2021-06-03] MEDS: Ipratropium Neb 0.5 MG NEBULIZER IH SCH ×4 (03:56→20:33)
[2021-06-03 04:11] LABS: BUN/Creatinine Ratio 40 (6-26); Blood Urea Nitrogen 43 mg/dL (8-23); Calcium 9.2 mg/dL (8.6-10.3); Carbon Dioxide 29 mEq/L (23-29); Chloride 104 mEq/L (98-107); Glucose 96 mg/dL (70-105); Osmolality,Calculated 297 (280-300); Potassium 5.2 mEq/L (3.5-5.1); Sodium 138 mEq/L (136-145); eGFR For African Americans > 60 (> 60); eGFR For Non-African Americans > 60 (> 60)
[2021-06-03] MEDS: Isosorbide MONOnitrate (24 HR) 60 MG TAB.ER.24H PO SCH (08:28)
[2021-06-03] MEDS: *HR* Acetylcysteine 20% 600 MG/3 ML ORAL SYRINGE PO SCH (08:28)
[2021-06-03] MEDS: Ranolazine 500 MG TAB.ER.12H PO SCH (08:29)
[2021-06-03] MEDS: Cefdinir 300 MG CAPSULE PO SCH ×2 (08:29→20:57)
[2021-06-03] MEDS: Azithromycin 250 MG TABLET PO SCH (08:29)
[2021-06-03] MEDS: predniSONE 20 MG TABLET PO SCH (08:30)
[2021-06-03] MEDS: *HR* Rivaroxaban 15 MG TABLET PO SCH (19:42)
[2021-06-03] MEDS: Levalbuterol Neb 1.25 MG/3 ML IH PRN (20:33)
[2021-06-03] MEDS: QUEtiapine Fumarate 25 MG TABLET PO SCH (20:57)
[2021-06-04 01:43] LABS: Basophils % 0.3 %; Hematocrit 43.1 % (37.5-50.1); Hemoglobin 13.3 g/dL (12.9-16.9); Immature Granulocytes % 1.1 % (0-4); Lymphocytes # 0.7 K/mcL (0.6-4.6); Lymphocytes % 9.3 %; Mean Corpuscular HGB Conc 30.9 g/dL (31.6-35.5); Mean Corpuscular Volume 90.7 fL (83.0-100.0); Monocytes # 0.6 K/mcL (0.0-1.3); Monocytes % 8.9 %; Neutrophils # 5.8 K/mcL (1.6-8.9); Platelet Count 172 K/mcL (140-400); Red Blood Count 4.75 M/mcL (4.19-5.50); Red Cell Distribution Width 15.6 % (11.5-14.5); Segmented Neutrophils % 80.4 %; White Blood Count 7.2 K/mcL (4.3-11.1)
[2021-06-04 02:04] LABS: BUN/Creatinine Ratio 37 (6-26); Blood Urea Nitrogen 34 mg/dL (8-23); Calcium 9.1 mg/dL (8.6-10.3); Carbon Dioxide 31 mEq/L (23-29); Chloride 104 mEq/L (98-107); Glucose 139 mg/dL (70-105); Osmolality,Calculated 302 (280-300); Potassium 4.8 mEq/L (3.5-5.1); Sodium 141 mEq/L (136-145); eGFR For African Americans > 60 (> 60); eGFR For Non-African Americans > 60 (> 60)
[2021-06-04] MEDS: Ipratropium Neb 0.5 MG NEBULIZER IH SCH ×4 (04:05→19:56)
[2021-06-04] MEDS: Isosorbide MONOnitrate (24 HR) 60 MG TAB.ER.24H PO SCH (07:23)
[2021-06-04] MEDS: Cefdinir 300 MG CAPSULE PO SCH ×2 (07:23→19:32)
[2021-06-04] MEDS: predniSONE 20 MG TABLET PO SCH (07:24)
[2021-06-04] MEDS: Ranolazine 500 MG TAB.ER.12H PO SCH ×2 (07:24→19:35)
[2021-06-04] MEDS: Azithromycin 250 MG TABLET PO SCH (07:24)
[2021-06-04] MEDS: *HR* Acetylcysteine 20% 600 MG/3 ML ORAL SYRINGE PO SCH (07:25)
[2021-06-04] MEDS: amLODIPine 5 MG TABLET PO SCH (10:59)
[2021-06-04] MEDS: Levalbuterol Neb 1.25 MG/3 ML IH PRN (15:34)
[2021-06-04] MEDS: *HR* Rivaroxaban 10 MG TABLET PO SCH (16:43)
[2021-06-04 18:36] LABS: ABG Base Excess 6 mEq/L (-2 to 3); ABG HCO3 35 mEq/L (21-27); ABG Oxygen Saturation 97 % (95-98); ABG PCO2 66 mmHg (35-45); ABG PH 7.33 pH Units (7.32-7.45); ABG PO2 104 mmHg (85-104); ABG TCO2 37 mEq/L (20-26)
[2021-06-04] MEDS: Sennosides/Docusate Sodium TABLET PO PRN (19:32)
[2021-06-04] MEDS: QUEtiapine Fumarate 25 MG TABLET PO SCH (19:32)
[2021-06-05] MEDS: Ipratropium Neb 0.5 MG NEBULIZER IH SCH ×3 (03:20→16:27)
[2021-06-05 05:41] LABS: Basophils # 0.1 K/mcL (0.0-0.2); Eosinophils % 0.3 %; Hematocrit 47.6 % (37.5-50.1); Hemoglobin 14.1 g/dL (12.9-16.9); Immature Granulocytes % 1.1 % (0-4); Lymphocytes % 14.6 %; Mean Corpuscular HGB Conc 29.6 g/dL (31.6-35.5); Mean Corpuscular Hemoglobin 28.4 pg (28.0-33.3); Mean Platelet Volume 11.9 fL (9.4-12.4); Monocytes # 0.7 K/mcL (0.0-1.3); Monocytes % 10.2 %; Neutrophils # 5.1 K/mcL (1.6-8.9); Nucleated Red Blood Cells 0.3 /100 WBC (0); Platelet Count 192 K/mcL (140-400); Red Blood Count 4.96 M/mcL (4.19-5.50); Red Cell Distribution Width 15.9 % (11.5-14.5); Segmented Neutrophils % 72.8 %
[2021-06-05 06:05] LABS: BUN/Creatinine Ratio 36 (6-26); Blood Urea Nitrogen 29 mg/dL (8-23); Carbon Dioxide 37 mEq/L (23-29); Chloride 102 mEq/L (98-107); Glucose 93 mg/dL (70-105); Osmolality,Calculated 298 (280-300); Potassium 4.6 mEq/L (3.5-5.1); Sodium 141 mEq/L (136-145); eGFR For African Americans > 60 (> 60); eGFR For Non-African Americans > 60 (> 60)
[2021-06-05] MEDS: *HR* Acetylcysteine 20% 600 MG/3 ML ORAL SYRINGE PO SCH (09:13)
[2021-06-05] MEDS: Ranolazine 500 MG TAB.ER.12H PO SCH ×2 (09:13→21:01)
[2021-06-05] MEDS: predniSONE 20 MG TABLET PO SCH (09:14)
[2021-06-05] MEDS: Cefdinir 300 MG CAPSULE PO SCH (09:14)
[2021-06-05] MEDS: Isosorbide MONOnitrate (24 HR) 60 MG TAB.ER.24H PO SCH (09:14)
[2021-06-05] MEDS: amLODIPine 5 MG TABLET PO SCH (09:14)
[2021-06-05] MEDS: Levalbuterol Neb 1.25 MG/3 ML IH PRN (10:21)
[2021-06-05] MEDS: *HR* Rivaroxaban 10 MG TABLET PO SCH (16:05)
[2021-06-05] MEDS ORDERED: Albuterol 2.5 MG/3 ML NEBULIZER IH PRN (17:54)
[2021-06-05] MEDS: QUEtiapine Fumarate 25 MG TABLET PO SCH (21:01)
[2021-06-06 02:46] LABS: BUN/Creatinine Ratio 33 (6-26); Blood Urea Nitrogen 28 mg/dL (8-23); Calcium 9.1 mg/dL (8.6-10.3); Carbon Dioxide 37 mEq/L (23-29); Chloride 100 mEq/L (98-107); Glucose 132 mg/dL (70-105); Osmolality,Calculated 295 (280-300); Potassium 4.8 mEq/L (3.5-5.1); Sodium 139 mEq/L (136-145); eGFR For African Americans > 60 (> 60); eGFR For Non-African Americans > 60 (> 60)
[2021-06-06 09:24] LABS: Hemoglobin 15.1 g/dL (12.9-16.9); Mean Corpuscular HGB Conc 31.5 g/dL (31.6-35.5); Mean Corpuscular Hemoglobin 28.1 pg (28.0-33.3); Mean Corpuscular Volume 89.2 fL (83.0-100.0); Mean Platelet Volume 10.6 fL (9.4-12.4); Platelet Count 237 K/mcL (140-400); Red Blood Count 5.38 M/mcL (4.19-5.50); Red Cell Distribution Width 15.7 % (11.5-14.5); White Blood Count 7.8 K/mcL (4.3-11.1)
[2021-06-06] MEDS: *HR* Acetylcysteine 20% 600 MG/3 ML ORAL SYRINGE PO SCH (10:53)
[2021-06-06] MEDS: Cholecalciferol (D-3) 1,000 UNIT (25MCG) TABLET PO SCH (10:53)
[2021-06-06] MEDS: Ranolazine 500 MG TAB.ER.12H PO SCH ×2 (10:55→21:30)
[2021-06-06] MEDS: Isosorbide MONOnitrate (24 HR) 60 MG TAB.ER.24H PO SCH (10:56)
[2021-06-06] MEDS: predniSONE 20 MG TABLET PO SCH (10:56)
[2021-06-06] MEDS: amLODIPine 5 MG TABLET PO SCH (10:57)
[2021-06-06] MEDS: Sennosides/Docusate Sodium TABLET PO PRN (17:49)
[2021-06-06] MEDS: *HR* Rivaroxaban 10 MG TABLET PO SCH (17:49)
[2021-06-07 01:31] LABS: Hematocrit 45.9 % (37.5-50.1); Hemoglobin 14.2 g/dL (12.9-16.9); Mean Corpuscular HGB Conc 30.9 g/dL (31.6-35.5); Mean Corpuscular Hemoglobin 27.7 pg (28.0-33.3); Mean Corpuscular Volume 89.5 fL (83.0-100.0); Mean Platelet Volume 11.4 fL (9.4-12.4); Platelet Count 245 K/mcL (140-400); Red Blood Count 5.13 M/mcL (4.19-5.50); Red Cell Distribution Width 15.5 % (11.5-14.5); White Blood Count 11.6 K/mcL (4.3-11.1)
[2021-06-07 01:48] LABS: BUN/Creatinine Ratio 31 (6-26); Blood Urea Nitrogen 26 mg/dL (8-23); Calcium 9.1 mg/dL (8.6-10.3); Carbon Dioxide 37 mEq/L (23-29); Chloride 98 mEq/L (98-107); Glucose 134 mg/dL (70-105); Osmolality,Calculated 293 (280-300); Potassium 4.7 mEq/L (3.5-5.1); Sodium 138 mEq/L (136-145); eGFR For African Americans > 60 (> 60); eGFR For Non-African Americans > 60 (> 60)
[2021-06-07] MEDS: *HR* Acetylcysteine 20% 600 MG/3 ML ORAL SYRINGE PO SCH (09:41)
[2021-06-07] MEDS: Isosorbide MONOnitrate (24 HR) 60 MG TAB.ER.24H PO SCH (09:41)
[2021-06-07] MEDS: amLODIPine 5 MG TABLET PO SCH (09:41)
[2021-06-07] MEDS: Ranolazine 500 MG TAB.ER.12H PO SCH ×2 (09:42→20:22)
[2021-06-07] MEDS: Cholecalciferol (D-3) 1,000 UNIT (25MCG) TABLET PO SCH (09:42)
[2021-06-07] MEDS: predniSONE 20 MG TABLET PO SCH (09:42)
[2021-06-07] MEDS: *HR* Rivaroxaban 10 MG TABLET PO SCH (17:28)
[2021-06-08 06:47] LABS: Hemoglobin 14.8 g/dL (12.9-16.9); Mean Corpuscular HGB Conc 30.8 g/dL (31.6-35.5); Mean Corpuscular Hemoglobin 28.3 pg (28.0-33.3); Mean Corpuscular Volume 91.8 fL (83.0-100.0); Platelet Count 215 K/mcL (140-400); Red Blood Count 5.23 M/mcL (4.19-5.50); Red Cell Distribution Width 15.5 % (11.5-14.5)
[2021-06-08 07:09] LABS: BUN/Creatinine Ratio 30 (6-26); Blood Urea Nitrogen 25 mg/dL (8-23); Calcium 8.9 mg/dL (8.6-10.3); Carbon Dioxide 39 mEq/L (23-29); Chloride 97 mEq/L (98-107); Glucose 141 mg/dL (70-105); Osmolality,Calculated 295 (280-300); Potassium 4.5 mEq/L (3.5-5.1); Sodium 139 mEq/L (136-145); eGFR For African Americans > 60 (> 60); eGFR For Non-African Americans > 60 (> 60)
[2021-06-08] MEDS: *HR* Acetylcysteine 20% 600 MG/3 ML ORAL SYRINGE PO SCH (07:57)
[2021-06-08] MEDS: Isosorbide MONOnitrate (24 HR) 60 MG TAB.ER.24H PO SCH (07:57)
[2021-06-08] MEDS: Ranolazine 500 MG TAB.ER.12H PO SCH (07:58)
[2021-06-08] MEDS: amLODIPine 5 MG TABLET PO SCH (07:58)
[2021-06-08] MEDS: Cholecalciferol (D-3) 1,000 UNIT (25MCG) TABLET PO SCH (07:58)
[2021-06-08] MEDS ORDERED: predniSONE 10 MG TABLET PO SCH (09:00)
[2021-06-08 15:53] VITALS: BP 111/50; PULSE 64; TEMP 97.9; O2SAT 97
[2021-06-08] MEDS: *HR* Rivaroxaban 10 MG TABLET PO SCH (17:04)
== END 2021-06-08 19:08 | DRG 871 ==
LOC: 2ANU 10:50 → EMEROOARM 10:50 → SUATTDRO 15:05 → 2ANU 16:56
PROVIDERS: ADMIT Internal Medicine; ATTEND Internal Medicine

== ENCOUNTER 2021-07-31 21:25 | Inpatient (IN) ==
[2021-08-01] MEDS ORDERED: Acetaminophen 325 MG TABLET PO PRN (00:45)
[2021-08-01] MEDS ORDERED: Naloxone 0.4 MG/ML INJ IVP PRN (00:45)
[2021-08-01] MEDS ORDERED: Ipratropium/Albuterol Neb 3 ML IH PRN (00:49)
[2021-08-01] MEDS ORDERED: Perflutren Lipid Microsphere 1.3 ML in 0.9 % Sodium Chloride 8.7 ML IVP PRN (00:51)
[2021-08-01 01:55] LABS: Basophils % 0.3 %; Eosinophils % 0.3 %; Immature Granulocytes % 0.9 % (0-4); Lymphocytes # 0.4 K/mcL (0.6-4.6); Lymphocytes % 6.3 %; Mean Corpuscular Hemoglobin 28.9 pg (28.0-33.3); Mean Corpuscular Volume 90.3 fL (83.0-100.0); Monocytes # 0.1 K/mcL (0.0-1.3); Monocytes % 1.4 %; Neutrophils # 6.4 K/mcL (1.6-8.9); Platelet Count 187 K/mcL (140-400); Red Blood Count 5.54 M/mcL (4.19-5.50); Red Cell Distribution Width 15.9 % (11.5-14.5); Segmented Neutrophils % 90.8 %
[2021-08-01 01:59] LABS: INR 1.4; Prothrombin Time 16.1 Seconds (9.4-12.1)
[2021-08-01 02:01] LABS: Activated Partial Thrombo Time 37.1 Seconds (26.0-36.0)
[2021-08-01 02:33] LABS: Chloride 101 mEq/L (98-107); Potassium 4.6 mEq/L (3.5-5.1); Sodium 139 mEq/L (136-145); Thyroid Stimulating Hormone 0.682 mcIU/mL (0.340-5.600); Troponin I 0.23 ng/mL (< 0.04)
[2021-08-01 03:22] LABS: Adenovirus Not Detected (Not Detect); Bordetella Pertussis Not Detected (Not Detect); Chlamydophila pneumoniae Not Detected (Not Detect); Coronavirus 229E Not Detected (Not Detect); Coronavirus HKU1 Not Detected (Not Detect); Coronavirus NL63 Not Detected (Not Detect); Coronavirus OC43 Not Detected (Not Detect); Human Metapneumovirus Not Detected (Not Detect); Human Rhinovirus/Enterovirus Not Detected (Not Detect); Influenza A Subtype 2009 H1 Not Detected (Not Detect); Influenza B Not Detected (Not Detect); Mycoplasma pneumoniae Not Detected (Not Detect); Parainfluenza Virus 1 Not Detected (Not Detect); Parainfluenza Virus 2 Not Detected (Not Detect); Parainfluenza Virus 3 Not Detected (Not Detect); Parainfluenza Virus 4 Not Detected (Not Detect); Respiratory Syncytial Virus Not Detected (Not Detect); SARS-CoV-2 Not Detected (Not Detect)
[2021-08-01 03:30] LABS: BUN/Creatinine Ratio 23 (6-26); Blood Urea Nitrogen 25 mg/dL (8-23); Calcium 9.4 mg/dL (8.6-10.3); Carbon Dioxide 23 mEq/L (23-29); Chol/HDL Ratio 2.2 (0-4.9); Cholesterol 128 mg/dL (< 200); Glucose 166 mg/dL (70-105); HDL Cholesterol 57 mg/dL (40-59); LDL Cholesterol,Calculated 60 mg/dL (< 100); Magnesium 1.8 mg/dL (1.6-2.6); Osmolality,Calculated 296 (280-300); Triglycerides 56 mg/dL (< 150); eGFR For African Americans > 60 (> 60); eGFR For Non-African Americans > 60 (> 60)
[2021-08-01] MEDS ORDERED: *HR* Heparin 5,000 UNIT/ML VIAL IVP PRN ×2 (03:58)
[2021-08-01] MEDS ORDERED: *HR* Heparin 5,000 UNIT/ML VIAL IVP ONE (03:58)
[2021-08-01] MEDS ORDERED: Heparin 25,000UNIT/250ML 1/2NS 25,000 UNIT/250 ML IV.SOLN IVC SCH (04:00)
[2021-08-01] MEDS: Heparin 25,000UNIT/250ML 1/2NS 25,000 UNIT/250 ML IV.SOLN IVC SCH (04:52)
[2021-08-01] MEDS ORDERED: Tiotropium 10 INH DOSE IH ONE (07:22)
[2021-08-01] MEDS: Isosorbide MONOnitrate (24 HR) 30 MG TAB.ER.24H PO SCH (07:49)
[2021-08-01] MEDS: Ondansetron 4 MG/2 ML VIAL IVP PRN (07:49)
[2021-08-01] MEDS: Magnesium Oxide 400 MG TABLET PO SCH (07:49)
[2021-08-01 08:04] LABS: Estimated Average Glucose 114 mg/dl; Hemoglobin A1C 5.6 %
[2021-08-01] MEDS ORDERED: Tiotropium 10 INH DOSE IH SCH (09:00)
[2021-08-01] MEDS: Ipratropium/Albuterol Neb 3 ML IH SCH ×4 (11:13→23:58)
[2021-08-01] MEDS ORDERED: Furosemide 40 MG/4 ML VIAL IVP SCH (11:45)
[2021-08-01] MEDS: BREZTRI AEROSPHERE PO SCH ×2 (11:52→20:32)
[2021-08-01] MEDS: Aspirin 81 MG TAB.CHEW PO SCH (12:31)
[2021-08-01 13:35] LABS: Bilirubin,Urine Negative (Negative); Blood,Urine Negative (Negative); Clarity,Urine Clear (Clear); Color,Urine Light-Yellow (Yellow); Glucose,Urine (UA) Normal (Normal); Hyaline Casts,Urine Few per lpf (None Seen); Ketones,Urine Negative (Negative); Leukocyte Esterase,Urine Negative (Negative); Mucus,Urine Few per lpf (None-Few); Nitrite,Urine Negative (Negative); PH,Urine 5.5 pH Units (5.0-8.0); Protein,Urine 30 mg/dL (Neg-Trace); RBC,Urine 0-3 per hpf (0-3); Specific Gravity,Urine 1.018 (1.010-1.025); Squamous Epithelial Cell,Urine Few per hpf (None-Few); Urobilinogen,Urine Normal (Normal); WBC,Urine 0-3 per hpf (0-3)
[2021-08-01] MEDS: MethylPREDNISolone 40 MG/ML VIAL IVP SCH ×2 (16:40→23:57)
[2021-08-01] MEDS: Melatonin 3 MG TABLET PO SCH (20:31)
[2021-08-02 02:42] LABS: Basophils % 0.1 %; Hematocrit 44.9 % (37.5-50.1); Hemoglobin 14.7 g/dL (12.9-16.9); Immature Granulocytes % 0.5 % (0-4); Lymphocytes # 0.5 K/mcL (0.6-4.6); Lymphocytes % 4.7 %; Mean Corpuscular HGB Conc 32.7 g/dL (31.6-35.5); Mean Corpuscular Hemoglobin 29.8 pg (28.0-33.3); Mean Corpuscular Volume 90.9 fL (83.0-100.0); Mean Platelet Volume 11.3 fL (9.4-12.4); Monocytes # 0.2 K/mcL (0.0-1.3); Monocytes % 1.5 %; Platelet Count 169 K/mcL (140-400); Red Blood Count 4.94 M/mcL (4.19-5.50); Red Cell Distribution Width 15.9 % (11.5-14.5); Segmented Neutrophils % 93.2 %
[2021-08-02 02:53] LABS: Neutrophils # 10.3 K/mcL (1.6-8.9)
[2021-08-02 03:00] LABS: Calcium 8.8 mg/dL (8.6-10.3)
[2021-08-02] MEDS: Ipratropium/Albuterol Neb 3 ML IH SCH ×6 (04:06→23:21)
[2021-08-02] MEDS: Heparin 25,000UNIT/250ML 1/2NS 25,000 UNIT/250 ML IV.SOLN IVC SCH (08:54)
[2021-08-02] MEDS: Aspirin 81 MG TAB.CHEW PO SCH (08:55)
[2021-08-02] MEDS: Cyanocobalamin (B-12) 1,000 MCG TABLET PO SCH (08:55)
[2021-08-02] MEDS: Isosorbide MONOnitrate (24 HR) 30 MG TAB.ER.24H PO SCH (08:55)
[2021-08-02] MEDS: Magnesium Oxide 400 MG TABLET PO SCH (08:55)
[2021-08-02] MEDS: MethylPREDNISolone 40 MG/ML VIAL IVP SCH (08:55)
[2021-08-02] MEDS: Cholecalciferol (D-3) 1,000 UNIT (25MCG) TABLET PO SCH (08:55)
[2021-08-02] MEDS: BREZTRI AEROSPHERE PO SCH ×2 (08:56→20:18)
[2021-08-02] MEDS: Insulin LISPRO 300 UNITS/3 ML VIAL SUBQ SCH ×3 (12:33→20:15)
[2021-08-02] MEDS ORDERED: MethylPREDNISolone 40 MG/ML VIAL IVP SCH (18:00)
[2021-08-02] MEDS: Melatonin 3 MG TABLET PO SCH (20:15)
[2021-08-03 03:56] LABS: Basophils % 0.1 %; Hematocrit 44.8 % (37.5-50.1); Immature Granulocytes % 0.6 % (0-4); Lymphocytes # 0.8 K/mcL (0.6-4.6); Lymphocytes % 6.2 %; Mean Corpuscular HGB Conc 31.3 g/dL (31.6-35.5); Mean Corpuscular Volume 92.8 fL (83.0-100.0); Mean Platelet Volume 11.6 fL (9.4-12.4); Monocytes # 0.9 K/mcL (0.0-1.3); Monocytes % 7.2 %; Neutrophils # 10.7 K/mcL (1.6-8.9); Platelet Count 142 K/mcL (140-400); Red Blood Count 4.83 M/mcL (4.19-5.50); Red Cell Distribution Width 15.9 % (11.5-14.5); Segmented Neutrophils % 85.9 %; White Blood Count 12.5 K/mcL (4.3-11.1)
[2021-08-03] MEDS: Ipratropium/Albuterol Neb 3 ML IH SCH ×5 (04:01→20:38)
[2021-08-03 04:11] LABS: BUN/Creatinine Ratio 39 (6-26); Blood Urea Nitrogen 48 mg/dL (8-23); Calcium 8.5 mg/dL (8.6-10.3); Carbon Dioxide 29 mEq/L (23-29); Chloride 102 mEq/L (98-107); Glucose 121 mg/dL (70-105); Osmolality,Calculated 296 (280-300); Potassium 4.2 mEq/L (3.5-5.1); Sodium 136 mEq/L (136-145); eGFR For African Americans > 60 (> 60); eGFR For Non-African Americans 57 (> 60)
[2021-08-03] MEDS: Heparin 25,000UNIT/250ML 1/2NS 25,000 UNIT/250 ML IV.SOLN IVC SCH (05:03)
[2021-08-03] MEDS: Insulin LISPRO 300 UNITS/3 ML VIAL SUBQ SCH ×4 (07:23→20:42)
[2021-08-03] MEDS: predniSONE 20 MG TABLET PO SCH (08:40)
[2021-08-03] MEDS: Cholecalciferol (D-3) 1,000 UNIT (25MCG) TABLET PO SCH (08:40)
[2021-08-03] MEDS: Aspirin 81 MG TAB.CHEW PO SCH (08:41)
[2021-08-03] MEDS: Metoprolol XL (24 HR) Succ 25 MG TAB.ER.24H PO SCH (08:41)
[2021-08-03] MEDS: Isosorbide MONOnitrate (24 HR) 30 MG TAB.ER.24H PO SCH (08:41)
[2021-08-03] MEDS: Cyanocobalamin (B-12) 1,000 MCG TABLET PO SCH (08:41)
[2021-08-03] MEDS: Magnesium Oxide 400 MG TABLET PO SCH (08:41)
[2021-08-03] MEDS: BREZTRI AEROSPHERE PO SCH ×2 (08:41→20:42)
[2021-08-03] MEDS ORDERED: *HR* Heparin 10,000 UNIT/10 ML VIAL ONE (13:00)
[2021-08-03] MEDS ORDERED: Heparin 1,000 UNITS/500 mL 500 ML ONE (13:01)
[2021-08-03] MEDS ORDERED: 0.9 % Sodium Chloride 1,000 ML ONE ×2 (13:01)
[2021-08-03] MEDS ORDERED: ISOVUE-370 200 ML INFUS..BTL ONE (13:01)
[2021-08-03] MEDS ORDERED: Nitroglycerin 1,000 MCG/5 ML VIAL IV ONE (13:01)
[2021-08-03] MEDS ORDERED: *HR* Midazolam HCl 5 MG/5 ML VIAL IVP ONE (15:43)
[2021-08-03] MEDS ORDERED: *HR* FentaNYL (PF) 100 MCG/2 ML VIAL ONE (15:43)
[2021-08-03] MEDS: Ondansetron 4 MG/2 ML VIAL IVP PRN (17:04)
[2021-08-03] MEDS: Melatonin 3 MG TABLET PO SCH (20:42)
[2021-08-04] MEDS: Ipratropium/Albuterol Neb 3 ML IH SCH ×4 (00:06→11:20)
[2021-08-04 06:03] LABS: Basophils % 0.1 %; Hematocrit 42.8 % (37.5-50.1); Hemoglobin 13.5 g/dL (12.9-16.9); Immature Granulocytes % 0.7 % (0-4); Lymphocytes # 1.1 K/mcL (0.6-4.6); Lymphocytes % 15.1 %; Mean Corpuscular HGB Conc 31.5 g/dL (31.6-35.5); Mean Corpuscular Hemoglobin 28.8 pg (28.0-33.3); Mean Corpuscular Volume 91.5 fL (83.0-100.0); Mean Platelet Volume 10.8 fL (9.4-12.4); Monocytes # 0.8 K/mcL (0.0-1.3); Neutrophils # 5.3 K/mcL (1.6-8.9); Platelet Count 152 K/mcL (140-400); Red Blood Count 4.68 M/mcL (4.19-5.50); Red Cell Distribution Width 15.9 % (11.5-14.5); Segmented Neutrophils % 73.1 %; White Blood Count 7.3 K/mcL (4.3-11.1)
[2021-08-04 06:23] LABS: BUN/Creatinine Ratio 38 (6-26); Blood Urea Nitrogen 43 mg/dL (8-23); Calcium 8.6 mg/dL (8.6-10.3); Carbon Dioxide 30 mEq/L (23-29); Chloride 104 mEq/L (98-107); Glucose 105 mg/dL (70-105); Osmolality,Calculated 299 (280-300); Potassium 4.4 mEq/L (3.5-5.1); Sodium 139 mEq/L (136-145); eGFR For African Americans > 60 (> 60); eGFR For Non-African Americans > 60 (> 60)
[2021-08-04] MEDS: Insulin LISPRO 300 UNITS/3 ML VIAL SUBQ SCH ×4 (07:11→20:49)
[2021-08-04] MEDS: Magnesium Oxide 400 MG TABLET PO SCH (08:51)
[2021-08-04] MEDS: Aspirin 81 MG TAB.CHEW PO SCH (08:51)
[2021-08-04] MEDS: Cholecalciferol (D-3) 1,000 UNIT (25MCG) TABLET PO SCH (08:51)
[2021-08-04] MEDS: Metoprolol XL (24 HR) Succ 25 MG TAB.ER.24H PO SCH (08:51)
[2021-08-04] MEDS: Cyanocobalamin (B-12) 1,000 MCG TABLET PO SCH (08:51)
[2021-08-04] MEDS: Isosorbide MONOnitrate (24 HR) 30 MG TAB.ER.24H PO SCH (08:51)
[2021-08-04] MEDS: predniSONE 20 MG TABLET PO SCH (08:51)
[2021-08-04] MEDS: BREZTRI AEROSPHERE PO SCH ×3 (08:52→20:11)
[2021-08-04] MEDS ORDERED: Budesonide/Formoterol 160/4.5 1 PUFF INH IH SCH (11:00)
[2021-08-04] MEDS ORDERED: BREZTRI AEROSPHERE PO SCH ×2 (12:00→22:00)
[2021-08-04] MEDS: Sennosides/Docusate Sodium TABLET PO PRN (13:32)
[2021-08-04] MEDS: Albuterol 2.5 MG/3 ML NEBULIZER IH SCH ×3 (15:55→23:29)
[2021-08-04] MEDS: Furosemide 20 MG TABLET PO SCH (16:31)
[2021-08-04] MEDS: *HR* Rivaroxaban 10 MG TABLET PO SCH (16:31)
[2021-08-04] MEDS: polyethylene glycoL 3350 17 GM POWD.PACK PO PRN (16:34)
[2021-08-04] MEDS: Doxycycline 100 MG CAPSULE PO SCH (18:12)
[2021-08-04] MEDS: Melatonin 3 MG TABLET PO SCH (20:10)
[2021-08-04] MEDS: Ranolazine 500 MG TAB.ER.12H PO SCH (20:10)
[2021-08-05] MEDS: Albuterol 2.5 MG/3 ML NEBULIZER IH SCH ×4 (04:16→15:18)
[2021-08-05] MEDS: Doxycycline 100 MG CAPSULE PO SCH ×2 (05:59→15:58)
[2021-08-05 07:04] LABS: Basophils % 0.1 %; Hemoglobin 13.7 g/dL (12.9-16.9); Immature Granulocytes % 0.8 % (0-4); Lymphocytes # 0.9 K/mcL (0.6-4.6); Lymphocytes % 10.8 %; Mean Corpuscular HGB Conc 31.1 g/dL (31.6-35.5); Mean Platelet Volume 10.8 fL (9.4-12.4); Monocytes # 0.9 K/mcL (0.0-1.3); Monocytes % 10.2 %; Neutrophils # 6.6 K/mcL (1.6-8.9); Platelet Count 171 K/mcL (140-400); Red Blood Count 4.73 M/mcL (4.19-5.50); Red Cell Distribution Width 15.7 % (11.5-14.5); Segmented Neutrophils % 78.1 %; White Blood Count 8.5 K/mcL (4.3-11.1)
[2021-08-05] MEDS: BREZTRI AEROSPHERE PO SCH (07:29)
[2021-08-05] MEDS: Insulin LISPRO 300 UNITS/3 ML VIAL SUBQ SCH ×2 (07:33→11:45)
[2021-08-05 07:35] LABS: BUN/Creatinine Ratio 37 (6-26); Blood Urea Nitrogen 43 mg/dL (8-23); Calcium 8.6 mg/dL (8.6-10.3); Carbon Dioxide 30 mEq/L (23-29); Chloride 102 mEq/L (98-107); Glucose 131 mg/dL (70-105); Osmolality,Calculated 301 (280-300); Potassium 4.8 mEq/L (3.5-5.1); Sodium 139 mEq/L (136-145); eGFR For African Americans > 60 (> 60); eGFR For Non-African Americans > 60 (> 60)
[2021-08-05] MEDS: Ondansetron 4 MG/2 ML VIAL IVP PRN (08:01)
[2021-08-05] MEDS: Ranolazine 500 MG TAB.ER.12H PO SCH (08:30)
[2021-08-05] MEDS: Isosorbide MONOnitrate (24 HR) 30 MG TAB.ER.24H PO SCH (08:30)
[2021-08-05] MEDS: Aspirin 81 MG TAB.CHEW PO SCH (08:30)
[2021-08-05] MEDS: Sennosides/Docusate Sodium TABLET PO PRN (08:30)
[2021-08-05] MEDS: Metoprolol XL (24 HR) Succ 25 MG TAB.ER.24H PO SCH (08:30)
[2021-08-05] MEDS: polyethylene glycoL 3350 17 GM POWD.PACK PO PRN (08:30)
[2021-08-05] MEDS: predniSONE 20 MG TABLET PO SCH (08:32)
[2021-08-05] MEDS: Cholecalciferol (D-3) 1,000 UNIT (25MCG) TABLET PO SCH (08:32)
[2021-08-05] MEDS: Magnesium Oxide 400 MG TABLET PO SCH (08:32)
[2021-08-05] MEDS: Furosemide 20 MG TABLET PO SCH (08:32)
[2021-08-05] MEDS: Cyanocobalamin (B-12) 1,000 MCG TABLET PO SCH (08:32)
[2021-08-05] MEDS ORDERED: Bisacodyl 10 MG RECTAL SUPPOSITORY RC PRN (10:31)
[2021-08-05 11:30] VITALS: BP 125/62; PULSE 63; TEMP 97.9
[2021-08-05 15:20] VITALS: O2SAT 96
[2021-08-05] MEDS: *HR* Rivaroxaban 10 MG TABLET PO SCH (15:58)
== END 2021-08-05 16:18 | disposition home health service (06) | DRG 286 ==
LOC: 2NENU → SUATTDRO 08-01 00:28
PROVIDERS: ADMIT Internal Medicine; ATTEND General Practice

== ENCOUNTER 2021-08-12 14:24 | Observation (INO) ==
[2021-08-12] MEDS ORDERED: methylPREDNISolone 125 MG/2 ML VIAL IVP ONE (15:08)
[2021-08-12] MEDS ORDERED: Azithromycin 500 MG in 0.9 % Sodium Chloride 250 ML IVPB ONE (15:09)
[2021-08-12] MEDS ORDERED: Ipratropium/Albuterol Neb 3 ML IH ONE (15:09)
[2021-08-12 15:52] LABS: Basophils % 0.4 %; Eosinophils # 0.1 K/mcL (0.0-0.6); Hematocrit 45.7 % (37.5-50.1); Hemoglobin 15.1 g/dL (12.9-16.9); Immature Granulocytes % 1.3 % (0-4); Lymphocytes # 1.1 K/mcL (0.6-4.6); Lymphocytes % 14.9 %; Mean Corpuscular Hemoglobin 29.4 pg (28.0-33.3); Mean Corpuscular Volume 89.1 fL (83.0-100.0); Mean Platelet Volume 10.9 fL (9.4-12.4); Monocytes # 0.8 K/mcL (0.0-1.3); Monocytes % 10.2 %; Neutrophils # 5.5 K/mcL (1.6-8.9); Platelet Count 218 K/mcL (140-400); Red Blood Count 5.13 M/mcL (4.19-5.50); Red Cell Distribution Width 15.4 % (11.5-14.5); Segmented Neutrophils % 72.2 %; White Blood Count 7.6 K/mcL (4.3-11.1)
[2021-08-12 16:00] LABS: INR 1.5; Prothrombin Time 16.7 Seconds (9.4-12.1)
[2021-08-12 16:01] LABS: VBG HCO3 29 mEq/L (21-27); VBG PCO2 45 mmHg (41-51); VBG PH 7.42 pH Units (7.32-7.42); VBG PO2 108 mmHg (25-50)
[2021-08-12 16:03] LABS: Activated Partial Thrombo Time 32.4 Seconds (26.0-36.0)
[2021-08-12 16:23] LABS: Albumin 3.6 g/dL (3.5-5.7); Albumin/Globulin Ratio 1.6 (1.1-2.2); Bilirubin,Direct 0.1 mg/dL (0.0-0.2); Bilirubin,Indirect 0.5 mg/dL (0.0-1.0); Bilirubin,Total 0.6 mg/dL (0.3-1.0); Globulin 2.3 g/dL (2.4-3.5); Phosphorous 3.3 mg/dL (2.7-4.5); Total Protein 5.9 g/dL (6.4-8.9); Troponin I 0.04 ng/mL (< 0.04)
[2021-08-12 17:07] LABS: Adenovirus Not Detected (Not Detect); Bordetella Pertussis Not Detected (Not Detect); Chlamydophila pneumoniae Not Detected (Not Detect); Coronavirus 229E Not Detected (Not Detect); Coronavirus HKU1 Not Detected (Not Detect); Coronavirus NL63 Not Detected (Not Detect); Coronavirus OC43 Not Detected (Not Detect); Human Metapneumovirus Not Detected (Not Detect); Human Rhinovirus/Enterovirus Not Detected (Not Detect); Influenza A Subtype 2009 H1 Not Detected (Not Detect); Influenza B Not Detected (Not Detect); Mycoplasma pneumoniae Not Detected (Not Detect); Parainfluenza Virus 1 Not Detected (Not Detect); Parainfluenza Virus 2 Not Detected (Not Detect); Parainfluenza Virus 3 Not Detected (Not Detect); Parainfluenza Virus 4 Not Detected (Not Detect); Respiratory Syncytial Virus Not Detected (Not Detect); SARS-CoV-2 Not Detected (Not Detect)
[2021-08-12] MEDS ORDERED: Ondansetron 4 MG/2 ML VIAL IVP PRN (17:49)
[2021-08-12] MEDS ORDERED: Naloxone 0.4 MG/ML INJ IVP PRN (17:49)
[2021-08-12] MEDS ORDERED: Acetaminophen 325 MG TABLET PO PRN (17:49)
[2021-08-12] MEDS ORDERED: *HR* Rivaroxaban 10 MG TABLET PO SCH (19:00)
[2021-08-12] MEDS ORDERED: Ipratropium/Albuterol Neb 3 ML ONE (19:44)
[2021-08-12] MEDS: Ipratropium/Albuterol Neb 3 ML IH SCH (19:56)
[2021-08-12] MEDS: Doxycycline 100 MG CAPSULE PO SCH (20:24)
[2021-08-12 22:13] LABS: Bilirubin,Urine Negative (Negative); Blood,Urine Negative (Negative); Clarity,Urine Clear (Clear); Color,Urine Yellow (Yellow); Glucose,Urine (UA) Normal (Normal); Hyaline Casts,Urine Few per lpf (None Seen); Ketones,Urine Trace mg/dL (Negative); Leukocyte Esterase,Urine Negative (Negative); Mucus,Urine Few per lpf (None-Few); Nitrite,Urine Negative (Negative); Protein,Urine 30 mg/dL (Neg-Trace); RBC,Urine 0-3 per hpf (0-3); Specific Gravity,Urine 1.024 (1.010-1.025); Sperm,Urine Present per hpf (None Seen); Urobilinogen,Urine Normal (Normal); WBC,Urine 0-3 per hpf (0-3)
[2021-08-13] MEDS: MethylPREDNISolone 40 MG/ML VIAL IVP SCH ×4 (00:29→23:27)
[2021-08-13 01:11] LABS: Basophils % 0.2 %; Eosinophils % 0.1 %; Hematocrit 45.2 % (37.5-50.1); Hemoglobin 15.2 g/dL (12.9-16.9); Immature Granulocytes % 1.5 % (0-4); Lymphocytes # 0.4 K/mcL (0.6-4.6); Lymphocytes % 4.3 %; Mean Corpuscular HGB Conc 33.6 g/dL (31.6-35.5); Mean Corpuscular Hemoglobin 29.6 pg (28.0-33.3); Mean Corpuscular Volume 88.1 fL (83.0-100.0); Mean Platelet Volume 10.5 fL (9.4-12.4); Monocytes # 0.1 K/mcL (0.0-1.3); Monocytes % 0.9 %; Neutrophils # 9.3 K/mcL (1.6-8.9); Platelet Count 213 K/mcL (140-400); Red Blood Count 5.13 M/mcL (4.19-5.50); Red Cell Distribution Width 15.2 % (11.5-14.5)
[2021-08-13 01:35] LABS: Calcium 8.9 mg/dL (8.6-10.3); Potassium 4.6 mEq/L (3.5-5.1); Troponin I 0.03 ng/mL (< 0.04)
[2021-08-13] MEDS: Ipratropium/Albuterol Neb 3 ML IH SCH ×4 (03:46→20:50)
[2021-08-13] MEDS: Doxycycline 100 MG CAPSULE PO SCH ×2 (06:01→17:07)
[2021-08-13] MEDS: Metoprolol XL (24 HR) Succ 25 MG TAB.ER.24H PO SCH (08:58)
[2021-08-13] MEDS ORDERED: Furosemide 20 MG/2 ML VIAL IVP ONE (11:31)
[2021-08-13] MEDS ORDERED: Sennosides/Docusate Sodium TABLET PO PRN (13:07)
[2021-08-13 14:16] LABS: Folate 12.2 ng/mL (3.0-16.0)
[2021-08-13 14:22] LABS: Vitamin B12 > 1500 pg/mL (250-1100); Vitamin D 25 Hydroxy 44 ng/mL (30-80)
[2021-08-13] MEDS ORDERED: diazePAM 2 MG TABLET PO PRN (17:00)
[2021-08-13] MEDS: *HR* Rivaroxaban 15 MG TABLET PO SCH (17:07)
[2021-08-13] MEDS: Ranolazine 500 MG TAB.ER.12H PO SCH (20:32)
[2021-08-13] MEDS ORDERED: diazePAM 10 MG/2 ML SYRINGE IVP ONE (23:06)
[2021-08-14 01:50] LABS: Hematocrit 43.8 % (37.5-50.1); Hemoglobin 14.2 g/dL (12.9-16.9); Mean Corpuscular HGB Conc 32.4 g/dL (31.6-35.5); Mean Corpuscular Hemoglobin 29.1 pg (28.0-33.3); Mean Corpuscular Volume 89.8 fL (83.0-100.0); Mean Platelet Volume 11.2 fL (9.4-12.4); Platelet Count 200 K/mcL (140-400); Red Blood Count 4.88 M/mcL (4.19-5.50); Red Cell Distribution Width 15.5 % (11.5-14.5)
[2021-08-14 01:54] LABS: White Blood Count 18.7 K/mcL (4.3-11.1)
[2021-08-14 02:58] LABS: BUN/Creatinine Ratio 27 (6-26); Blood Urea Nitrogen 35 mg/dL (8-23); Calcium 8.6 mg/dL (8.6-10.3); Carbon Dioxide 21 mEq/L (23-29); Chloride 102 mEq/L (98-107); Glucose 126 mg/dL (70-105); Osmolality,Calculated 290 (280-300); Potassium 5.2 mEq/L (3.5-5.1); Sodium 135 mEq/L (136-145); eGFR For African Americans > 60 (> 60); eGFR For Non-African Americans 52 (> 60)
[2021-08-14] MEDS: Ipratropium/Albuterol Neb 3 ML IH SCH ×4 (04:14→20:33)
[2021-08-14] MEDS: Doxycycline 100 MG CAPSULE PO SCH ×2 (06:29→16:55)
[2021-08-14] MEDS: Metoprolol XL (24 HR) Succ 25 MG TAB.ER.24H PO SCH (07:56)
[2021-08-14] MEDS: MethylPREDNISolone 40 MG/ML VIAL IVP SCH ×2 (07:56→16:55)
[2021-08-14] MEDS: Aspirin 81 MG TAB.CHEW PO SCH (07:56)
[2021-08-14] MEDS: Ranolazine 500 MG TAB.ER.12H PO SCH ×2 (07:57→20:17)
[2021-08-14] MEDS: *HR* Rivaroxaban 15 MG TABLET PO SCH (16:55)
[2021-08-15] MEDS: MethylPREDNISolone 40 MG/ML VIAL IVP SCH ×2 (00:16→08:34)
[2021-08-15 00:59] LABS: Hematocrit 43.3 % (37.5-50.1); Hemoglobin 13.8 g/dL (12.9-16.9); Mean Corpuscular HGB Conc 31.9 g/dL (31.6-35.5); Mean Corpuscular Hemoglobin 29.1 pg (28.0-33.3); Mean Corpuscular Volume 91.2 fL (83.0-100.0); Mean Platelet Volume 11.5 fL (9.4-12.4); Platelet Count 213 K/mcL (140-400); Red Blood Count 4.75 M/mcL (4.19-5.50); Red Cell Distribution Width 15.5 % (11.5-14.5); White Blood Count 21.4 K/mcL (4.3-11.1)
[2021-08-15 01:20] LABS: BUN/Creatinine Ratio 35 (6-26); Blood Urea Nitrogen 43 mg/dL (8-23); Calcium 8.8 mg/dL (8.6-10.3); Carbon Dioxide 27 mEq/L (23-29); Chloride 103 mEq/L (98-107); Glucose 156 mg/dL (70-105); Osmolality,Calculated 292 (280-300); Potassium 5.1 mEq/L (3.5-5.1); Sodium 134 mEq/L (136-145); eGFR For African Americans > 60 (> 60); eGFR For Non-African Americans 57 (> 60)
[2021-08-15] MEDS: Ipratropium/Albuterol Neb 3 ML IH SCH ×2 (04:21→07:33)
[2021-08-15] MEDS: Doxycycline 100 MG CAPSULE PO SCH (06:21)
[2021-08-15] MEDS: Ranolazine 500 MG TAB.ER.12H PO SCH (08:34)
[2021-08-15] MEDS: Aspirin 81 MG TAB.CHEW PO SCH (08:34)
[2021-08-15] MEDS: Metoprolol XL (24 HR) Succ 25 MG TAB.ER.24H PO SCH (08:34)
[2021-08-15] MEDS ORDERED: polyethylene glycoL 3350 17 GM POWD.PACK PO SCH (10:15)
[2021-08-15 13:46] VITALS: BP 138/70; PULSE 69; TEMP 97.9; O2SAT 96
== END 2021-08-15 15:01 | disposition home health service (06) ==
LOC: EMEROOARM 14:24 → 2ANU 14:24 → SUATTDRO 17:10 → 2ANU 19:23
PROVIDERS: ADMIT Internal Medicine; ATTEND Family Medicine

== ENCOUNTER 2022-02-11 05:07 | Observation (INO) ==
[2022-02-11] MEDS ORDERED: dexAMETHasone 4 MG TABLET PO STA (05:34)
[2022-02-11] MEDS ORDERED: Orphenadrine 100 MG TABLET.ER PO ONE (05:34)
[2022-02-11] MEDS ORDERED: Naloxone 0.4 MG/ML INJ IVP PRN (09:25)
[2022-02-11 15:00] LABS: Basophils % 0.2 %; Eosinophils % 0.2 %; Hematocrit 48.6 % (37.5-50.1); Hemoglobin 14.6 g/dL (12.9-16.9); Lymphocytes # 0.4 K/mcL (0.6-4.6); Lymphocytes % 5.6 %; Mean Corpuscular Hemoglobin 27.4 pg (28.0-33.3); Mean Corpuscular Volume 91.4 fL (83.0-100.0); Monocytes # 0.1 K/mcL (0.0-1.3); Monocytes % 1.9 %; Neutrophils # 5.7 K/mcL (1.6-8.9); Platelet Count 182 K/mcL (140-400); Red Blood Count 5.32 M/mcL (4.19-5.50); Red Cell Distribution Width 17.1 % (11.5-14.5); Segmented Neutrophils % 91.1 %; White Blood Count 6.2 K/mcL (4.3-11.1)
[2022-02-11 15:24] LABS: Calcium 9.3 mg/dL (8.6-10.3); Potassium 4.7 mEq/L (3.5-5.1)
[2022-02-11] MEDS: *HR* HYDROcodone/Acet 5/325 mg TABLET PO PRN ×2 (16:47→23:15)
[2022-02-11] MEDS ORDERED: Albuterol 2.5 MG/3 ML NEBULIZER IH PRN (17:36)
[2022-02-11] MEDS ORDERED: Sennosides/Docusate Sodium TABLET PO PRN (17:36)
[2022-02-11] MEDS ORDERED: tiZANidine 4 MG TABLET PO PRN (18:34)
[2022-02-11] MEDS ORDERED: NON-FORMULARY MEDICATION 1 EACH EACH (Budesonide/Glycopyr/Formoterol [Breztri Aerosphere I PO SCH (21:00)
[2022-02-11] MEDS: Gabapentin 300 MG CAPSULE PO SCH (21:19)
[2022-02-11] MEDS: Ranolazine 500 MG TAB.ER.12H PO SCH (21:19)
[2022-02-11] MEDS: Budesonide/Formoterol 160/4.5 1 PUFF INH IH SCH (23:08)
[2022-02-12 05:22] LABS: Basophils % 0.1 %; Eosinophils % 0.1 %; Hematocrit 44.2 % (37.5-50.1); Hemoglobin 13.3 g/dL (12.9-16.9); Immature Granulocytes % 0.6 % (0-4); Lymphocytes # 0.8 K/mcL (0.6-4.6); Lymphocytes % 9.4 %; Mean Corpuscular HGB Conc 30.1 g/dL (31.6-35.5); Mean Corpuscular Hemoglobin 27.5 pg (28.0-33.3); Mean Corpuscular Volume 91.3 fL (83.0-100.0); Mean Platelet Volume 10.7 fL (9.4-12.4); Monocytes # 0.6 K/mcL (0.0-1.3); Monocytes % 7.6 %; Neutrophils # 6.8 K/mcL (1.6-8.9); Platelet Count 183 K/mcL (140-400); Red Blood Count 4.84 M/mcL (4.19-5.50); Red Cell Distribution Width 16.9 % (11.5-14.5); Segmented Neutrophils % 82.2 %; White Blood Count 8.3 K/mcL (4.3-11.1)
[2022-02-12 05:37] LABS: Calcium 9.2 mg/dL (8.6-10.3); Potassium 4.6 mEq/L (3.5-5.1)
[2022-02-12] MEDS: Budesonide/Formoterol 160/4.5 1 PUFF INH IH SCH ×2 (07:57→20:23)
[2022-02-12] MEDS: Ranolazine 500 MG TAB.ER.12H PO SCH ×2 (09:07→21:41)
[2022-02-12] MEDS: Isosorbide MONOnitrate (24 HR) 30 MG TAB.ER.24H PO SCH (09:07)
[2022-02-12] MEDS: Magnesium Oxide 400 MG TABLET PO SCH (09:08)
[2022-02-12] MEDS: Gabapentin 100 MG CAPSULE PO SCH (09:08)
[2022-02-12] MEDS: *HR* Rivaroxaban 15 MG TABLET PO SCH (09:08)
[2022-02-12] MEDS: Cyanocobalamin (B-12) 1,000 MCG TABLET PO SCH (09:08)
[2022-02-12] MEDS: Thiamine (B-1) 100 MG TABLET PO SCH (09:08)
[2022-02-12] MEDS: Metoprolol XL (24 HR) Succ 25 MG TAB.ER.24H PO SCH (09:08)
[2022-02-12] MEDS: Cholecalciferol (D-3) 1,000 UNIT (25MCG) TABLET PO SCH (09:08)
[2022-02-12] MEDS: Aspirin 81 MG TAB.CHEW PO SCH (09:08)
[2022-02-12] MEDS: Furosemide 40 MG TABLET PO SCH (09:08)
[2022-02-12] MEDS: *HR* HYDROcodone/Acet 5/325 mg TABLET PO PRN (09:11)
[2022-02-12] MEDS: Tiotropium 10 INH DOSE IH SCH (11:06)
[2022-02-12] MEDS: *HR* Acetylcysteine 20% 600 MG/3 ML ORAL SYRINGE PO SCH (11:11)
[2022-02-12] MEDS ORDERED: Moderna COVID-19 Vac ,BIVALENT BOOSTER 50 MCG/0.5 ML VIAL IM ONE (15:15)
[2022-02-12 17:07] LABS: Influenza A PCR Negative (Negative); Influenza B PCR Negative (Negative); Resp. Syncytial Virus PCR Negative (Negative)
[2022-02-12 17:09] LABS: SARS-CoV-2 by PCR (In House) Negative (Negative)
[2022-02-12] MEDS: Gabapentin 300 MG CAPSULE PO SCH (21:40)
[2022-02-13 04:33] LABS: Basophils % 0.4 %; Eosinophils # 0.2 K/mcL (0.0-0.6); Eosinophils % 2.2 %; Hematocrit 43.6 % (37.5-50.1); Hemoglobin 13.4 g/dL (12.9-16.9); Immature Granulocytes % 0.3 % (0-4); Lymphocytes # 1.3 K/mcL (0.6-4.6); Lymphocytes % 19.2 %; Mean Corpuscular HGB Conc 30.7 g/dL (31.6-35.5); Mean Corpuscular Hemoglobin 27.9 pg (28.0-33.3); Mean Corpuscular Volume 90.6 fL (83.0-100.0); Mean Platelet Volume 10.7 fL (9.4-12.4); Monocytes # 0.6 K/mcL (0.0-1.3); Monocytes % 8.6 %; Neutrophils # 4.7 K/mcL (1.6-8.9); Platelet Count 174 K/mcL (140-400); Red Blood Count 4.81 M/mcL (4.19-5.50); Red Cell Distribution Width 17.2 % (11.5-14.5); Segmented Neutrophils % 69.3 %; White Blood Count 6.8 K/mcL (4.3-11.1)
[2022-02-13 04:52] LABS: Potassium 4.5 mEq/L (3.5-5.1)
[2022-02-13 07:24] VITALS: BP 149/81; PULSE 64; TEMP 97.7; O2SAT 92
[2022-02-13] MEDS: Tiotropium 10 INH DOSE IH SCH (07:36)
[2022-02-13] MEDS: Budesonide/Formoterol 160/4.5 1 PUFF INH IH SCH (07:36)
[2022-02-13] MEDS: Gabapentin 100 MG CAPSULE PO SCH (08:36)
[2022-02-13] MEDS: Thiamine (B-1) 100 MG TABLET PO SCH (08:36)
[2022-02-13] MEDS: Isosorbide MONOnitrate (24 HR) 30 MG TAB.ER.24H PO SCH (08:36)
[2022-02-13] MEDS: Cyanocobalamin (B-12) 1,000 MCG TABLET PO SCH (08:36)
[2022-02-13] MEDS: Cholecalciferol (D-3) 1,000 UNIT (25MCG) TABLET PO SCH (08:36)
[2022-02-13] MEDS: *HR* Rivaroxaban 15 MG TABLET PO SCH (08:36)
[2022-02-13] MEDS: Aspirin 81 MG TAB.CHEW PO SCH (08:37)
[2022-02-13] MEDS: Furosemide 40 MG TABLET PO SCH (08:37)
[2022-02-13] MEDS: Metoprolol XL (24 HR) Succ 25 MG TAB.ER.24H PO SCH (08:37)
[2022-02-13] MEDS: Ranolazine 500 MG TAB.ER.12H PO SCH (08:37)
[2022-02-13] MEDS: Magnesium Oxide 400 MG TABLET PO SCH (08:40)
[2022-02-13] MEDS: *HR* Acetylcysteine 20% 600 MG/3 ML ORAL SYRINGE PO SCH (08:41)
== END 2022-02-13 11:18 | disposition home or self-care (01) ==
LOC: EMEROOARM 05:07 → 3BNU 05:07 → SUATTDRO 09:28 → 3BNU 11:20
PROVIDERS: ADMIT Internal Medicine; ATTEND Family Medicine